=== PATIENT | male | born 1980 | race Caucasian/White ===

== ENCOUNTER 2018-01-29 10:09 | Emergency (ER) | payer MEDICAID, SELFPAY ==
[2018-01-29 10:12] VITALS: BP 157/94; PULSE 105; RESP 18; TEMP 36.7; O2SAT 97
--- NOTE | 2018-01-29 10:34 | W.ED.GENAD ---
Discharge Plan Disposition Patient Disposition: HOME Condition: Good Discharge Details Chief Complaint: Headache Clinical Impression: Head ache, Pedal edema Primary Care Provider: Brenda Hdz ED Provider: James Dockery [place] Meds and New Rx's Prescriptions: New ibuprofen 800 mg tablet 800 mg PO TID PRN (Reason: pain) Qty: 30 RF: 0 No Action sertraline [Zoloft] 100 MG tablet 100 mg PO .QO HS RF: 0 hydroxyzine HCl 50 MG tablet 50 mg PO HS RF: 0 divalproex [Depakote] 500 MG tablet,delayed release (DR/EC) 1,000 mg PO BID RF: 0 buspirone 10 MG tablet 20 mg PO BID RF: 0 tramadol [Ultram] 50 MG tablet 50 mg PO Q6H PRN Qty: 30 RF: 0 acetaminophen [Tylenol] 325 MG tablet 650 mg PO Q6H PRN Qty: 60 RF: 0 nicotine [Nicotrol] 10 MG cartridge 10 mg Inhalation Q2H PRN PRNQty: 1 RF: 0 docusate sodium 100 MG capsule 1 cap BID RF: 0 ibuprofen 800 MG tablet 800 mg PO TID PRN PRNRF: 0 acetaminophen [Mapap Extra Strength] 500 MG tablet 500 mg PO PRN PRNRF: 0 nicotine (polacrilex) [Nicorelief] 4 MG gum 4 mg CH RF: 0 calcium carbonate 500 MG tablet,chewable 500 mg PO PRN PRNRF: 0 multivit with [id number] [Men's Daily] 1 EACH capsule 1 tab PO DAILY RF: 0 lidocaine HCl 30 ML jelly 1 ml Topical Q4H PRN PRNQty: 1 RF: 2 albuterol sulfate [ProAir HFA] 8.5 GM HFA aerosol inhaler 2 puff Inhalation Q6H PRNRF: 0 Nicotine [Nicotine Patch] 1 EACH Patch.Dysq RF: 0 polyethylene glycol 3350 255 GM powder 17 gm PO DAILY AM PRNRF: 0 Discharge Instructions Instructions: General Headache (ED) Referrals: [facility] Emergency Dept. [Outside] - Return if symptoms worsen Discharge Data Discharge Date/Time-TO BE ENTERED AT DEPARTURE: 01/29/18 13:54 Medical Decision Making 37 y/o male with multiple medical issues blurred by his mental health. Will evaluate cp and swelling with ECG, chest x-ray, and labs. Will treat COTTON with morphine 2mg, Ibuprofen, and nausea with Zofran. Pt tells me he is feeling better. He does ask for Demerol but I respectfully declined. Advised to f/u with new pcp. I prescribed Ibuprofen for home use and at care bed. Apprised of normal lab work and abnormal chest x-ray. ECG Data Attestation: I personally reviewed and interpreted this ECG (s) as follows: Interpretation: reviewed with Dr. Lauro Prado. Sinus tachycardia with no acute ST changes. HPI General Date/Time Provider Initiated Documentation: 01/29/18 10:16. Limitations to Documentation: no limitations. Information obtained by: patient. History of Present Illness 37 year old M presents to the emergency department with the chief complaint of COTTON and feet swelling, HPI Narrative: 37 y/o male here with c/o COTTON and swelling of both feet. Juno has thick mental history with last inpatient stay reported a couple weeks ago for SI with attempt. He is a spotty historian and is inconsistency in his explanation and treatments he has received in the past. He is currently staying at the care bed. He tells me that his feet began to swelling while in the hospital after receiving imitrex. Everyday he notices his feet swell since that time. The facility does no share medical records so unable to verify patients history. He also c/o COTTON that is exacerbated by his mental illness. He tells me he needs to get his COTTON under control so he can deal with his mental well being. He denies any SI or HI today. He had CP two days ago and SOB today. Related Data Home Medications Medication Instructions Recorded Confirmed nicotine [Nicotrol] 10 mg INHALATION Q2H PRN PRN #1 ctr 01/22/13 12/29/17 docusate sodium 1 cap BID 05/25/14 12/29/17 ibuprofen 800 mg PO TID PRN PRN 01/10/15 12/29/17 buspirone 20 mg PO BID tab-cap NS 06/13/17 12/29/17 divalproex [Depakote] 1,000 mg PO BID tab-cap NS 06/13/17 12/29/17 hydroxyzine HCl 50 mg PO HS NS 06/13/17 12/29/17 sertraline [Zoloft] 100 mg PO .QO HS tab-cap NS 06/13/17 12/29/17 acetaminophen [Mapap Extra 500 mg PO PRN PRN 06/22/17 12/29/17 Strength] calcium carbonate 500 mg PO PRN PRN 06/22/17 12/29/17 lidocaine HCl 1 ml TOPICAL Q4H PRN PRN #1 tube 06/22/17 12/29/17 multivit with [id number] 1 tab PO DAILY 06/22/17 12/29/17 [Men's Daily] nicotine (polacrilex) [Nicorelief] 4 mg CH 06/22/17 12/29/17 Nicotine [Nicotine Patch] 09/07/17 12/29/17 albuterol sulfate [ProAir HFA] 2 puff INHALATION Q6H PRN 09/07/17 12/29/17 polyethylene glycol 3350 17 gm PO DAILY AM PRN 09/07/17 12/29/17 tramadol [Ultram] 50 mg PO Q6H PRN #30 tab-cap 10/05/17 12/29/17 acetaminophen [Tylenol] 650 mg PO Q6H PRN #60 tab-cap 10/10/17 12/29/17 ibuprofen 800 mg PO TID PRN #30 tab 01/29/18 Previous Rx's Medication Instructions Recorded nicotine [Nicotrol] 10 mg INHALATION Q2H PRN PRN #1 ctr 01/22/13 lidocaine HCl 1 ml TOPICAL Q4H PRN PRN #1 tube 06/22/17 tramadol [Ultram] 50 mg PO Q6H PRN #30 tab-cap 10/05/17 acetaminophen [Tylenol] 650 mg PO Q6H PRN #60 tab-cap 10/10/17 ibuprofen 800 mg PO TID PRN #30 tab 01/29/18 Allergies Allergy/AdvReac Type Severity Reaction Status Date / Time buprenorphine HCl Allergy Leg Unverified 09/07/17 06:32 [From Suboxone] swelling naloxone HCl [From Suboxone] Allergy Unverified 09/07/17 06:32 ketorolac [From Toradol] AdvReac Mild Headache Unverified 09/07/17 06:32 General Stated Complaint: Headache SEBASTIEN: 3 Review of Systems Eyes Reports system reviewed and no additional complaints, except as docu ENT Reports system reviewed and no additional complaints, except as docu Cardiovascular Reports chest pain, Reports pedal edema and Reports dyspnea Respiratory Reports dyspnea Gastrointestinal Denies abdominal pain, Denies diarrhea and Reports nausea Genitourinary Reports system reviewed and no additional complaints, except as [facility] Musculoskeletal Reports system reviewed and no additional complaints, except as [facility] Integumentary/Breasts Comments: redness to bilateral groin Neurologic Reports system reviewed and no additional complaints, except as docu Psychiatric Reports abnormal sleep pattern, Reports depression, Reports hopelessness, Reports irritability, Denies visual hallucinations, Denies hallucinations, Denies homicidal ideation and Denies suicidal ideation Hematologic/Lymphatic Reports system reviewed and no additional complaints, except as docu [facility] Social History household members: family housing: house lives independently: Yes Smoking/Tobacco Use Status: Current every day alcohol intake: never substance use type: does not use Exam Const General: cooperative, comfortable, no acute distress, well groomed and other (looks much older than 37) Nutritional Appearance: overweight Orientation: alert, awake and oriented x3 HENMT Head: atraumatic Ears: hearing grossly normal bilaterally, external ears normal and TM's normal bilaterally General nose exam: external nose normal and nares normal Face and sinus: face symmetric Mouth: oral mucosae normal Throat: posterior oropharynx normal Eyes General: appearance normal, both eyes and all related structures Alignment and Position: alignment normal Eyelids: eyelids normal Conjunctivae: conjunctivae normal Pupils: PERRL Neck Neck: normal visual inspection, full ROM, no lymphadenopathy and supple Resp Effort & Inspection: normal respiratory effort Auscultation: clear to auscultation bilaterally Cardio Jugular venous pressure: no JVD Rate: tachycardic Rhythm: regular rhythm Heart Sounds: no murmurs GI Inspection: normal to inspection Palpation: nontender Auscultation: normal bowel sounds Male General Exam: Yes normal external exam, No inguinal lymphadenopathy and Yes tenderness Penis: normal penis, not edematous and not erythematous Back/Spine/Pelvis Back: no CVA tenderness and No back tenderness Cervical Spine: cervical ROM normal Thoracic/Lumbar Spine: thoraco-lumbar ROM normal Skin General skin exam: no rashes or lesions noted Neuro General: alert, awake, oriented x3, gait normal and moves all extremities Cranial Nerves: PERRL Cognition: normal cognition Speech: speech normal Gait: normal gait Motor: tremor (slight hands and feet) and strength abnormal (bilateral lower extremties) Extrem General: full ROM and normal capillary refill Right upper extremity: full ROM and normal capillary refill Left upper extremity: full ROM and normal capillary refill Right lower extremity: full ROM, normal capillary refill, edema, ankle Details: no edema and foot Details: edema Left lower extremity: full ROM, normal capillary refill, edema, ankle Details: pitting edema and foot Details: edema Psych Appearance: grossly normal and well kempt Mental Status: mental status grossly normal Speech and Movement: slowed movement Mood: irritable mood Affect: irritable affect Attitude: cooperative Thought Process: circumstantial Thought Content: obsessions Insight: fair Judgment: fair Course Vital Signs Temperature 36.7 C 01/29/18 10:12 Pulse 105 H 01/29/18 10:12 Respiratory Rate 18 01/29/18 10:12 Blood Pressure 157/94 H 01/29/18 10:12 Pulse Oximetry 97 01/29/18 10:12 Temperature 36.7 C 01/29/18 10:12 Temperature Source Skin 01/29/18 10:12 Pulse 105 H 01/29/18 10:12 Respiratory Rate 18 01/29/18 10:12 Respiratory Effort 01/29/18 10:16 Blood Pressure 157/94 H 01/29/18 10:12 Blood Pressure Position Sitting 01/29/18 10:12 Pulse Oximetry 97 01/29/18 10:12 Oxygen Delivery Method Room Air 01/29/18 10:12 Oxygen Flow Rate 0 01/29/18 10:12 Pain Level 10 01/29/18 10:17
--- NOTE | 2018-01-29 10:44 | ED.GENADUL_ITS ---
Discharge Plan Disposition Patient Disposition: HOME Condition: Good Discharge Details Chief Complaint: Headache Clinical Impression: Head ache, Pedal edema Primary Care Provider: Brenda Hdz ED Provider: James Dockery [place] Meds and New Rx's Prescriptions: New ibuprofen 800 mg tablet 800 mg PO TID PRN (Reason: pain) Qty: 30 RF: 0 No Action sertraline [Zoloft] 100 MG tablet 100 mg PO .QO HS RF: 0 hydroxyzine HCl 50 MG tablet 50 mg PO HS RF: 0 divalproex [Depakote] 500 MG tablet,delayed release (DR/EC) 1,000 mg PO BID RF: 0 buspirone 10 MG tablet 20 mg PO BID RF: 0 tramadol [Ultram] 50 MG tablet 50 mg PO Q6H PRN Qty: 30 RF: 0 acetaminophen [Tylenol] 325 MG tablet 650 mg PO Q6H PRN Qty: 60 RF: 0 nicotine [Nicotrol] 10 MG cartridge 10 mg Inhalation Q2H PRN PRNQty: 1 RF: 0 docusate sodium 100 MG capsule 1 cap BID RF: 0 ibuprofen 800 MG tablet 800 mg PO TID PRN PRNRF: 0 acetaminophen [Mapap Extra Strength] 500 MG tablet 500 mg PO PRN PRNRF: 0 nicotine (polacrilex) [Nicorelief] 4 MG gum 4 mg CH RF: 0 calcium carbonate 500 MG tablet,chewable 500 mg PO PRN PRNRF: 0 multivit with [id number] [Men's Daily] 1 EACH capsule 1 tab PO DAILY RF: 0 lidocaine HCl 30 ML jelly 1 ml Topical Q4H PRN PRNQty: 1 RF: 2 albuterol sulfate [ProAir HFA] 8.5 GM HFA aerosol inhaler 2 puff Inhalation Q6H PRNRF: 0 Nicotine [Nicotine Patch] 1 EACH Patch.Dysq RF: 0 polyethylene glycol 3350 255 GM powder 17 gm PO DAILY AM PRNRF: 0 Discharge Instructions Instructions: General Headache (ED) Referrals: [facility] Emergency Dept. [Outside] - Return if symptoms worsen Discharge Data Discharge Date/Time-TO BE ENTERED AT DEPARTURE: 01/29/18 13:54 Medical Decision Making 37 y/o male with multiple medical issues blurred by his mental health. Will evaluate cp and swelling with ECG, chest x-ray, and labs. Will treat COTTON with morphine 2mg, Ibuprofen, and nausea with Zofran. Pt tells me he is feeling better. He does ask for Demerol but I respectfully declined. Advised to f/u with new pcp. I prescribed Ibuprofen for home use and at care bed. Apprised of normal lab work and abnormal chest x-ray. ECG Data Attestation: I personally reviewed and interpreted this ECG (s) as follows: Interpretation: reviewed with Dr. Lauro Prado. Sinus tachycardia with no acute ST changes. HPI General Date/Time Provider Initiated Documentation: 01/29/18 10:16 . Limitations to Documentation: no limitations . Information obtained by: patient . History of Present Illness 37 year old M presents to the emergency department with the chief complaint of COTTON and feet swelling, HPI Narrative: 37 y/o male here with c/o COTTON and swelling of both feet. Juno has thick mental history with last inpatient stay reported a couple weeks ago for SI with attempt. He is a spotty historian and is inconsistency in his explanation and treatments he has received in the past. He is currently staying at the care bed. He tells me that his feet began to swelling while in the hospital after receiving imitrex. Everyday he notices his feet swell since that time. The facility does no share medical records so unable to verify patients history. He also c/o COTTON that is exacerbated by his mental illness. He tells me he needs to get his COTTON under control so he can deal with his mental well being. He denies any SI or HI today. He had CP two days ago and SOB today. Related Data Home Medications Medication Instructions Recorded Confirmed nicotine [Nicotrol] 10 mg INHALATION Q2H PRN PRN #1 ctr 01/22/13 12/29/17 docusate sodium 1 cap BID 05/25/14 12/29/17 ibuprofen 800 mg PO TID PRN PRN 01/10/15 12/29/17 buspirone 20 mg PO BID tab-cap NS 06/13/17 12/29/17 divalproex [Depakote] 1,000 mg PO BID tab-cap NS 06/13/17 12/29/17 hydroxyzine HCl 50 mg PO HS NS 06/13/17 12/29/17 sertraline [Zoloft] 100 mg PO .QO HS tab-cap NS 06/13/17 12/29/17 acetaminophen [Mapap Extra 500 mg PO PRN PRN 06/22/17 12/29/17 Strength] calcium carbonate 500 mg PO PRN PRN 06/22/17 12/29/17 lidocaine HCl 1 ml TOPICAL Q4H PRN PRN #1 tube 06/22/17 12/29/17 multivit with [id number] 1 tab PO DAILY 06/22/17 12/29/17 [Men's Daily] nicotine (polacrilex) [Nicorelief] 4 mg CH 06/22/17 12/29/17 Nicotine [Nicotine Patch] 09/07/17 12/29/17 albuterol sulfate [ProAir HFA] 2 puff INHALATION Q6H PRN 09/07/17 12/29/17 polyethylene glycol 3350 17 gm PO DAILY AM PRN 09/07/17 12/29/17 tramadol [Ultram] 50 mg PO Q6H PRN #30 tab-cap 10/05/17 12/29/17 acetaminophen [Tylenol] 650 mg PO Q6H PRN #60 tab-cap 10/10/17 12/29/17 ibuprofen 800 mg PO TID PRN #30 tab 01/29/18 Previous Rx's Medication Instructions Recorded nicotine [Nicotrol] 10 mg INHALATION Q2H PRN PRN #1 ctr 01/22/13 lidocaine HCl 1 ml TOPICAL Q4H PRN PRN #1 tube 06/22/17 tramadol [Ultram] 50 mg PO Q6H PRN #30 tab-cap 10/05/17 acetaminophen [Tylenol] 650 mg PO Q6H PRN #60 tab-cap 10/10/17 ibuprofen 800 mg PO TID PRN #30 tab 01/29/18 Allergies Allergy/AdvReac Type Severity Reaction Status Date / Time buprenorphine HCl Allergy Leg Unverified 09/07/17 06:32 [From Suboxone] swelling naloxone HCl [From Suboxone] Allergy Unverified 09/07/17 06:32 ketorolac [From Toradol] AdvReac Mild Headache Unverified 09/07/17 06:32 General Stated Complaint: Headache SEBASTIEN: 3 Review of Systems Eyes Reports system reviewed and no additional complaints, except as docu ENT Reports system reviewed and no additional complaints, except as docu Cardiovascular Reports chest pain, Reports pedal edema and Reports dyspnea Respiratory Reports dyspnea Gastrointestinal Denies abdominal pain, Denies diarrhea and Reports nausea Genitourinary Reports system reviewed and no additional complaints, except as [facility] Musculoskeletal Reports system reviewed and no additional complaints, except as [facility] Integumentary/Breasts Comments: redness to bilateral groin Neurologic Reports system reviewed and no additional complaints, except as docu Psychiatric Reports abnormal sleep pattern, Reports depression, Reports hopelessness, Reports irritability, Denies visual hallucinations, Denies hallucinations, Denies homicidal ideation and Denies suicidal ideation Hematologic/Lymphatic Reports system reviewed and no additional complaints, except as docu [facility] Social History household members: family housing: house lives independently: Yes Smoking/Tobacco Use Status: Current every day alcohol intake: never substance use type: does not use Exam Const General: cooperative, comfortable, no acute distress, well groomed and other (looks much older than 37) Nutritional Appearance: overweight Orientation: alert, awake and oriented x3 HENMT Head: atraumatic Ears: hearing grossly normal bilaterally, external ears normal and TM's normal bilaterally General nose exam: external nose normal and nares normal Face and sinus: face symmetric Mouth: oral mucosae normal Throat: posterior oropharynx normal Eyes General: appearance normal, both eyes and all related structures Alignment and Position: alignment normal Eyelids: eyelids normal Conjunctivae: conjunctivae normal Pupils: PERRL Neck Neck: normal visual inspection, full ROM, no lymphadenopathy and supple Resp Effort & Inspection: normal respiratory effort Auscultation: clear to auscultation bilaterally Cardio Jugular venous pressure: no JVD Rate: tachycardic Rhythm: regular rhythm Heart Sounds: no murmurs GI Inspection: normal to inspection Palpation: nontender Auscultation: normal bowel sounds Male General Exam: Yes normal external exam, No inguinal lymphadenopathy and Yes tenderness Penis: normal penis, not edematous and not erythematous Back/Spine/Pelvis Back: no CVA tenderness and No back tenderness Cervical Spine: cervical ROM normal Thoracic/Lumbar Spine: thoraco-lumbar ROM normal Skin General skin exam: no rashes or lesions noted Neuro General: alert, awake, oriented x3, gait normal and moves all extremities Cranial Nerves: PERRL Cognition: normal cognition Speech: speech normal Gait: normal gait Motor: tremor (slight hands and feet) and strength abnormal (bilateral lower extremties) Extrem General: full ROM and normal capillary refill Right upper extremity: full ROM and normal capillary refill Left upper extremity: full ROM and normal capillary refill Right lower extremity: full ROM, normal capillary refill, edema, ankle Details: no edema and foot Details: edema Left lower extremity: full ROM, normal capillary refill, edema, ankle Details: pitting edema and foot Details: edema Psych Appearance: grossly normal and well kempt Mental Status: mental status grossly normal Speech and Movement: slowed movement Mood: irritable mood Affect: irritable affect Attitude: cooperative Thought Process: circumstantial Thought Content: obsessions Insight: fair Judgment: fair Course Vital Signs Temperature 36.7 C 01/29/18 10:12 Pulse 105 H 01/29/18 10:12 Respiratory Rate 18 01/29/18 10:12 Blood Pressure 157/94 H 01/29/18 10:12 Pulse Oximetry 97 01/29/18 10:12 Temperature 36.7 C 01/29/18 10:12 Temperature Source Skin 01/29/18 10:12 Pulse 105 H 01/29/18 10:12 Respiratory Rate 18 01/29/18 10:12 Respiratory Effort 01/29/18 10:16 Blood Pressure 157/94 H 01/29/18 10:12 Blood Pressure Position Sitting 01/29/18 10:12 Pulse Oximetry 97 01/29/18 10:12 Oxygen Delivery Method Room Air 01/29/18 10:12 Oxygen Flow Rate 0 01/29/18 10:12 Pain Level 10 01/29/18 10:17
[2018-01-29 10:57] LABS: Absolute Basophil Count 0.02 k/cumm (0.0-0.2); Absolute Eosinophil Count 0.14 k/cumm (0.0-0.7); Absolute Lymphocyte Count 1.64 k/cumm (1.2-3.4); Absolute Monocyte Count 0.56 k/cumm (0.11-0.7); Absolute Neutrophil Count 3.63 k/cumm (1.2-6.7); Basophils % 0.3; Eosinophils % 2.3; HCT 36.9 % (40.0-50.0); HGB 12.6 g/dL (13.5-17.5); Immature Grans % 1.6; Lymphocytes % 26.9; Mean Corp. HGB Concentration 34.1 g/dL (32.0-36.0); Mean Corpuscular Hemoglobin 31.3 pg (27.0-33.0); Mean Corpuscular Volume 91.8 fL (80-95); Mean Platelet Volume 9.1 fL (8.0-11.0); Monocytes % 9.2; Neutrophils % 59.7; Platelet Count 264 x1000/uL (130-400); RBC 4.02 m/cumm (4.50-6.00); RBC Distribution Width 13.5 % (11.8-14.1); White Blood Cell Count 6.09 k/cumm (4.4-10.8)
[2018-01-29] MEDS: Ibuprofen 600 MG TAB PO (11:10)
[2018-01-29] MEDS: Ondansetron O.D.T. 4 MG TABEF PO (11:10)
[2018-01-29] MEDS: MORPHine 10 MG/ML VIAL 2 MG IVP (11:11)
[2018-01-29] MEDS: Normal Saline 1,000 ML 1000 ML IV (11:11)
[2018-01-29 11:20] LABS: ALT 34 U/L (12-78); AST 21 U/L (15-37); Albumin 3.5 g/dL (3.4-5.0); Alkaline Phosphatase 51 U/L (46-116); Anion Gap 10.3 mmol/L (3-11); BUN 11 mg/dL (7-18); Bilirubin, Total 0.2 mg/dL (0.2-1.0); CO2 27.7 mmol/L (21.0-32.0); CREATININE 0.77 mg/dL (0.70-1.30); Calcium 9.3 mg/dL (8.5-10.1); Chloride 102 mmol/L (98-107); Glucose 91 mg/dL (70-100); Sodium 140 mmol/L (136-145); Total Protein 6.9 g/dL (6.4-8.2)
[2018-01-29 11:36] LABS: ESR 17 MM/HR (0-15)
[2018-01-29 11:42] LABS: NT-proBNP 77 pg/mL
--- NOTE | 2018-01-29 12:15 | DI.RAD_ITS ---
SYMPTOM/DIAGNOSIS: CHEST PAIN, BILAT FEET SWELLING PA AND LATERAL CHEST: There is patient motion artifact on the lateral view. Heart size and pulmonary vasculature are within normal limits. No focal consolidating infiltrates or effusions are seen. There is a small, 7 mm. opacity projected over the left lung base. This may represent a superimposition of structures. The lateral view is grossly unremarkable in this region. The possibility of a pulmonary nodule cannot be excluded. No effusions or pneumothoraces are identified. The bones appear intact. IMPRESSION: 1. No acute pulmonary process. 2. 7 mm. density projected over the left lower lung field on the frontal view. This may represent artifact related to summation of shadows. A small pulmonary nodule cannot be excluded. A follow up chest xray should be considered in this patient for re-evaluation.
[2018-01-29 13:53] VITALS: BP 116/71; PULSE 80; RESP 16; TEMP 36.5; O2SAT 97
== END 2018-01-29 13:54 | disposition home or self-care (01) ==
PROVIDERS: Emergency Provider Nurse Practitioner Family; PCP Nurse Practitioner Family
DX: R51 Headache (principal); R60.9 Edema, unspecified
CPT/HCPCS: 36415; 80053; 85652; 93005; 96374; 99285; 71046; 83880; 85025; 93010; J2270

== ENCOUNTER 2018-01-30 22:30 | Emergency (ER) | payer MEDICAID, SELFPAY ==
[2018-01-30 22:36] VITALS: BP 131/81; PULSE 85; RESP 18; TEMP 36.7; O2SAT 98
[2018-01-30 23:01] LABS: Abs Immature Grans 0.09 k/cumm (0.0-0.09); Absolute Basophil Count 0.02 k/cumm (0.0-0.2); Absolute Eosinophil Count 0.13 k/cumm (0.0-0.7); Absolute Monocyte Count 0.45 k/cumm (0.11-0.7); Absolute Neutrophil Count 3.44 k/cumm (1.2-6.7); Basophils % 0.3; Eosinophils % 2.1; HCT 38.6 % (40.0-50.0); HGB 13.1 g/dL (13.5-17.5); Immature Grans % 1.5; Lymphocytes % 32.6; Mean Corp. HGB Concentration 33.9 g/dL (32.0-36.0); Mean Corpuscular Hemoglobin 30.8 pg (27.0-33.0); Mean Corpuscular Volume 90.8 fL (80-95); Mean Platelet Volume 8.8 fL (8.0-11.0); Monocytes % 7.3; Neutrophils % 56.2; Platelet Count 267 x1000/uL (130-400); RBC 4.25 m/cumm (4.50-6.00); RBC Distribution Width 13.4 % (11.8-14.1); White Blood Cell Count 6.13 k/cumm (4.4-10.8)
[2018-01-30 23:28] LABS: ALT 35 U/L (12-78); AST 18 U/L (15-37); Albumin 3.9 g/dL (3.4-5.0); Alkaline Phosphatase 56 U/L (46-116); Anion Gap 11.9 mmol/L (3-11); BUN 15 mg/dL (7-18); Bilirubin, Total 0.2 mg/dL (0.2-1.0); CO2 26.1 mmol/L (21.0-32.0); CREATININE 0.85 mg/dL (0.70-1.30); Calcium 9.2 mg/dL (8.5-10.1); Chloride 101 mmol/L (98-107); Glucose 103 mg/dL (70-100); Potassium 4.1 mmol/L (3.5-5.1); Sodium 139 mmol/L (136-145); TSH 2.34 uIU/mL (0.358-3.74); Total Protein 7.3 g/dL (6.4-8.2)
[2018-01-30 23:31] LABS: *AMPHETAMINES SCREEN URINE Negative (Negative); *BARBITURATES SCREEN URINE POSITIVE (Negative); *BENZODIAZEPINES SCREEN URINE Negative (Negative); Cannabinoids THC Negative (Negative); Cocaine Screen,Urine Negative (Negative); METHADONE URINE SCREEN Negative (Negative); OPIATES URINE SCREEN Negative (Negative)
[2018-01-30 23:33] LABS: Tricyclic Antidepressants Negative (Negative)
[2018-01-30 23:33] LABS: ETHANOL BLOOD < 3.0 mg/dL (<3); Salicylate < 2.8 mg/dL (2.8-20.0)
[2018-01-30 23:38] LABS: Acetaminophen < 2 ug/mL (10-30)
[2018-01-31] MEDS: Ibuprofen 800 MG TAB PO ×2 (00:05→07:22)
[2018-01-31] MEDS: Acetaminophen 500 MG TAB 1000 MG PO ×2 (00:05→07:23)
--- NOTE | 2018-01-31 00:25 | PDOC.MHCN ---
Mental Health Crisis Note Presenting Issue How did you arrive at the ED and why did you come: Patient comes by ambulance due to suicidal and homicidal ideation, intent and plan. Precipitating Factors Patient reports worsening suicidal and homicidal thoughts and says he spent the day thinking about ways of killing himself. He wants to pour gasoline on his parents' home and set it on fire, in addition to stabbing his psychiatrist in the throat because he is angry with them for ruining his life. Patient was recently discharged to the Care Bed from [facility] where he was admitted after a suicide attempt. He reports that the psychiatric hospitalization was not helpful to him as he continues to have suicidal and homicidal thoughts. Disposition BEHAVIOR: Calm and cooperative. EYE CONTACT: Intermittent. MOOD: Depressed. AFFECT: Subdued. APPETITE: Good. SLEEP(trouble falling/staying asleep: Reports being unable to sleep in several days. Plan After consultation with Dr. Clayton, the plan is for patient to remain at [facility] the [facility] as there are no available psychiatric beds this evening. Patient will be reassessed by [facility] program in the morning and the search for a placement will resume at that time, if deemed appropriate by [facility].
--- NOTE | 2018-01-31 00:33 | W.ED.GENAD ---
Medical Decision Making <Glynn Clayton DO - Last Filed: 02/17/18 11:48> This is a 37-year-old male who presents for evaluation of suicidal and homicidal ideations. He has multiple plans to harm himself, and he has done so in the past as well. He demonstrates red flags both that his clinical history, and is in his current complaint and plans. He also has homicidal ideations for his parents, including writing them on fire with gasoline. Because of the patient's history, risk factors, and complaints I do feel that he is at risk for harming self and others. Patient is coming in willingly, and is requesting treatment and help at this time. There is no indication for an EE at this time. We have created a safety plan, continuous observation, and a huddle. Currently there are no psychiatric beds available, and we do not have the appropriate staffing for admission to the floor for the patient. We will continue to keep him down here for the time being. Patient's laboratory workup is otherwise benign and he is medically cleared. 7:41 AM There continues to be no bed placement options in that state at this time, additionally we do not have the appropriate sitter option for admission to the floor at this time. Patient will continue to be observed in the emergency department pending reevaluation by mental health. Safety plan and continuous observation are still in place. Case will be signed out to my colleague Dr. Pate. HPI <Glynn Clayton DO - Last Filed: 02/17/18 11:48> General Date/Time Provider Initiated Documentation: 01/30/18 22:32. HPI Narrative: This is a 37-year-old male with a past medical history of suicidal attempts, seizure disorder, GERD, borderline personality disorder, schizophrenia, PTSD, who presents today for evaluation of suicidal and homicidal ideations. Patient states that he was recently discharged from a psychiatric facility for attempting to commit suicide within the past few weeks. He states that he has been living at the local crisis bed/chair bed. He states that he has been hearing [place] [employer] and this reminds him of his family, and is driving me nuts.He states that he wants to both kill himself and kill others. In regards to himself he has multiple plans of taking medications, stabbing himself in the chest with a sharp knife, or taking Drano or other toxic substances. He has been looking up the most painless ways to online, but he states that he has multiple different ideas. In regards to homicidal ideations he states that he has been thinking about killing his parents, by dousing their house or their bodies in gasoline and writing them on fire. He denies any auditory or visual hallucinations. He denies taking any medications, illicit drugs, or other substances recently to hurt himself. No other modifying factors at this time. Related Data Home Medications Medication Instructions Recorded Confirmed buspirone 20 mg PO BID tab-cap NS 06/13/17 02/15/18 divalproex [Depakote] 1,000 mg PO BID tab-cap NS 06/13/17 02/15/18 hydroxyzine HCl 50 mg PO HS NS 06/13/17 02/15/18 sertraline [Zoloft] 100 mg PO .QO HS tab-cap NS 06/13/17 02/15/18 acetaminophen [Mapap Extra 500 mg PO PRN PRN 06/22/17 02/15/18 Strength] ibuprofen 800 mg PO TID PRN #30 tab 01/29/18 02/15/18 gabapentin 100 mg PO TID 01/31/18 02/15/18 Previous Rx's Medication Instructions Recorded ibuprofen 800 mg PO TID PRN #30 tab 01/29/18 Allergies Allergy/AdvReac Type Severity Reaction Status Date / Time buprenorphine HCl Allergy Leg Unverified 02/15/18 00:21 [From Suboxone] swelling naloxone HCl [From Suboxone] Allergy Unverified 02/15/18 00:21 ketorolac [From Toradol] AdvReac Mild Headache Unverified 02/15/18 00:21 General Stated Complaint: PsychEval SEBASTIEN: 2 Review of Systems <Glynn Clayton DO - Last Filed: 02/17/18 11:48> Review of Systems All systems reviewed & are unremarkable except as noted in HPI and below PFSH <Glynn Clayton DO - Last Filed: 02/17/18 11:48> Social History household members: family housing: house lives independently: Yes Smoking/Tobacco Use Status: Current every day alcohol intake: never substance use type: does not use Exam <Glynn BrunsoncerDO - Last Filed: 02/17/18 11:48> Narrative Exam Narrative: 1.Const: Well-nourished, Well-developed, appearing stated age 2.Eyes: PERRL, no conjunctival injection, and symmetrical lids. 3.ENT: Atraumatic external nose and ears. Moist MM. Neck: Symmetric, trachea midline, No thyromegaly. 4.CVS: +S1/S2, No murmurs or gallops. Peripheral pulses 2+ and equal in all extremities. Brisk capillary refill in all extremities. 5.RESP: Unlabored respiratory effort. Clear to auscultation bilaterally. No wheezes rales or rhonchi 6.GI: Soft, Nontender/Nondistended, No hepatosplenomegaly. No guarding or rebound. 7.MSK: Normocephalic/Atraumatic, Extremities w/o deformity or ttp No cyanosis or clubbing, Normal movement of all extremities 8.Skin: Warm, Dry. No rashes or lesions. 9.Neuro: cop examiner II-XII grossly intact. Sensation grossly intact, no focal neurologic deficits. 10.Psych: (AAO) x3. Patient has a very flat mood and affect Course <Glynn Stubbs ForrestDO - Last Filed: 02/17/18 11:48> Vital Signs Temperature 36.7 C 01/30/18 22:36 Pulse 85 01/30/18 22:36 Respiratory Rate 18 01/30/18 22:36 Blood Pressure 131/81 01/30/18 22:36 Pulse Oximetry 98 01/30/18 22:36 Temperature 36.7 C 01/30/18 22:36 Temperature Source Skin 01/30/18 22:36 Pulse 85 01/30/18 22:36 Respiratory Rate 18 01/30/18 22:36 Respiratory Effort Non-Labored 01/30/18 22:46 Blood Pressure 131/81 01/30/18 22:36 Blood Pressure Position Sitting 01/30/18 22:36 Pulse Oximetry 98 01/30/18 22:36 Oxygen Delivery Method Room Air 01/30/18 22:36 Oxygen Flow Rate 0 01/30/18 22:36 Lab/Test Results Lab/Test Results: Laboratory Tests Range/Units 12/18/18 12/18/18 12/18/18 22:55 22:55 22:55 WBC (4.4-10.8) k/cumm 6.13 RBC (4.50-6.00) m/cumm 4.25 L Hgb (13.5-17.5) g/dL 13.1 L Hct (40.0-50.0) % 38.6 L MCV (80-95) fL 90.8 MCH (27.0-33.0) pg 30.8 MCHC (32.0-36.0) g/dL 33.9 RDW (11.8-14.1) % 13.4 Plt Count (130-400) x1000/uL 267 MPV (8.0-11.0) fL 8.8 Immature Gran % 1.5 Neutrophils % 56.2 Lymphocytes % 32.6 Monocytes % 7.3 Eosinophils % 2.1 Basophils % 0.3 Absolute Neutrophils (1.2-6.7) k/cumm 3.44 Absolute Lymphocytes (1.2-3.4) k/cumm 2.00 Absolute Monocytes (0.11-0.7) k/cumm 0.45 Absolute Eosinophils (0.0-0.7) k/cumm 0.13 Absolute Basophils (0.0-0.2) k/cumm 0.02 Sodium (136-145) mmol/L 139 Potassium (3.5-5.1) mmol/L 4.1 Chloride (98-107) mmol/L 101 Carbon Dioxide (21.0-32.0) mmol/L 26.1 Anion Gap (3-11) mmol/L 11.9 H BUN (7-18) mg/dL 15 Creatinine (0.70-1.30) mg/dL 0.85 Estimated GFR/1.73 m2 (mL/min/1.73m2) >= 60.00 Glucose (70-100) mg/dL 103 H Calcium (8.5-10.1) mg/dL 9.2 Total Bilirubin (0.2-1.0) mg/dL 0.2 AST (15-37) U/L 18 ALT (12-78) U/L 35 Alkaline Phosphatase (46-116) U/L 56 Total Protein (6.4-8.2) g/dL 7.3 Albumin (3.4-5.0) g/dL 3.9 TSH (0.358-3.74) uIU/mL 2.34 Salicylates (2.8-20.0) mg/dL < 2.8 L Urine Opiates Screen (Negative) Urine Methadone Screen (Negative) Acetaminophen (10-30) ug/mL < 2 L Ur Barbiturates Screen (Negative) Ur Tricyclics Screen (Negative) Ur Amphetamines Screen (Negative) U Benzodiazepines Scrn (Negative) Urine Cocaine Screen (Negative) Ur THC Screen (Negative) Ethyl Alcohol (<3) mg/dL < 3.0 Range/Units 01/30/18 23:04 WBC (4.4-10.8) k/cumm RBC (4.50-6.00) m/cumm Hgb (13.5-17.5) g/dL Hct (40.0-50.0) % MCV (80-95) fL MCH (27.0-33.0) pg MCHC (32.0-36.0) g/dL RDW (11.8-14.1) % Plt Count (130-400) x1000/uL MPV (8.0-11.0) fL Immature Gran % Neutrophils % Lymphocytes % Monocytes % Eosinophils % Basophils % Absolute Neutrophils (1.2-6.7) k/cumm Absolute Lymphocytes (1.2-3.4) k/cumm Absolute Monocytes (0.11-0.7) k/cumm Absolute Eosinophils (0.0-0.7) k/cumm Absolute Basophils (0.0-0.2) k/cumm Sodium (136-145) mmol/L Potassium (3.5-5.1) mmol/L Chloride (98-107) mmol/L Carbon Dioxide (21.0-32.0) mmol/L Anion Gap (3-11) mmol/L BUN (7-18) mg/dL Creatinine (0.70-1.30) mg/dL Estimated GFR/1.73 m2 (mL/min/1.73m2) Glucose (70-100) mg/dL Calcium (8.5-10.1) mg/dL Total Bilirubin (0.2-1.0) mg/dL AST (15-37) U/L ALT (12-78) U/L Alkaline Phosphatase (46-116) U/L Total Protein (6.4-8.2) g/dL Albumin (3.4-5.0) g/dL TSH (0.358-3.74) uIU/mL Salicylates (2.8-20.0) mg/dL Urine Opiates Screen (Negative) Negative Urine Methadone Screen (Negative) Negative Acetaminophen (10-30) ug/mL Ur Barbiturates Screen (Negative) Positive Ur Tricyclics Screen (Negative) Negative Ur Amphetamines Screen (Negative) Negative U Benzodiazepines Scrn (Negative) Negative Urine Cocaine Screen (Negative) Negative Ur THC Screen (Negative) Negative Ethyl Alcohol (<3) mg/dL Sign Out <Glynn Clayton DO - Last Filed: 02/17/18 11:48> Sign Out Data: Sign Out Comment: pending bed placement Last updated by Glynn Clayton DO at 01/31/18 07:48 Post-Handoff Eval: pt has remained stable, has vague SI and per mental health provider who knows him well states his complaints are chronic and unchanged and doesn't meet criteria for inpatient psychiatric placement at this time and feel he is stable for d/c back to care bed which at this current time I feel is appropriate.
--- NOTE | 2018-01-31 00:35 | PDOC.MHCN_ITS ---
Mental Health Crisis Note Presenting Issue How did you arrive at the ED and why did you come: Patient comes by ambulance due to suicidal and homicidal ideation, intent and plan. Precipitating Factors Patient reports worsening suicidal and homicidal thoughts and says he spent the day thinking about ways of killing himself. He wants to pour gasoline on his parents' home and set it on fire, in addition to stabbing his psychiatrist in the throat because he is angry with them for ruining his life. Patient was recently discharged to the Care Bed from [facility] where he was admitted after a suicide attempt. He reports that the psychiatric hospitalization was not helpful to him as he continues to have suicidal and homicidal thoughts. Disposition BEHAVIOR: Calm and cooperative. EYE CONTACT: Intermittent. MOOD: Depressed. AFFECT: Subdued. APPETITE: Good. SLEEP(trouble falling/staying asleep: Reports being unable to sleep in several days. Plan After consultation with Dr. Clayton, the plan is for patient to remain at [facility] for the night as there are no available psychiatric beds this evening. Patient will be reassessed by [facility] PUBLIC WORKS INSPECTOR program in the morning and the search for a placement will resume at that time, if deemed appropriate by PUBLIC WORKS INSPECTOR.
--- NOTE | 2018-01-31 00:44 | PDOC.ERCMPRO ---
Care Management Progress Note S/O: Juno is expressing SI and HI with a plan. He does not feel his recent hospitalization at [facility] was helpful but is willing to accept further inpatient psychiatric care. He cannot return to the care bed [facility] and will remain in the hospital until thre is an open bed at a psychiatric facility. Huddle at 12:10AM Paty Hernández and EMELINA [facility]connor ED; [facility] and this CM. Safety Plan - Voluntary Status seeking Inpatient Psychiatric admission 1. Suicide precautions. Paper scrubs. 2. Will remain in room under direct supervision of one-on-one staff at all times provided by GERALDO (CPSO), PHOTOGRAPHIC SPECIALIST servicenow administrator. 3. May have paper cups, plates, finger foods as well as a metal spoon with which to eat meals. [facility] staff will be responsible for accounting of utensils after meals. 4. Follow [facility] Management of the Admitted Behavioral Health Patient policy.. 5. Comfort bath system only. 6. No personal belongings. 7. No visitors. 8. No phone. 9. Staff to escort to the bathroom. 10. If Juno wishes to leave [facility] developmental services worker must be contacted and re-evaluate his condition prior to discharge from the hospital. Patient is currently voluntarily at [facility]. MH assessment completed by [facility] Frontline Seo Expert. [facility] Please contact the Intake Assessor Label Operator ([phone]) and [facility] developmental services worker ([phone])for any needed changes in the Safety Plan.
--- NOTE | 2018-01-31 01:21 | CMPROGNOTE_ITS ---
Care Management Progress Note S/O: Juno is expressing SI and HI with a plan. He does not feel his recent hospitalization at [place] was helpful but is willing to accept further inpatient psychiatric care. He [facility] the care bed [facility] and will remain in the hospital until thre is an open bed at a psychiatric facility. Huddle at 12:10AM Paty Hernández and [facility] ED; [facility] and this CM. Safety Plan - Voluntary Status seeking Inpatient Psychiatric admission 1. Suicide precautions. Paper scrubs. 2. Will remain in room under direct supervision of one-on-one staff at all times provided by GERALDO (CPSO), DIRECTOR PRINT store sales manager. 3. May have paper cups, plates, finger foods as well as a metal spoon with which to eat meals. [facility] staff will be responsible for accounting of utensils after meals. 4. Follow [facility] Management of the Admitted Behavioral Health Patient policy.. 5. Comfort bath system only. 6. No personal belongings. 7. No visitors. 8. No phone. 9. Staff to escort to the bathroom. 10. If Juno wishes to leave [facility] hollow handle bench worker must be contacted and re- evaluate his condition prior to discharge from the hospital. Patient is currently voluntarily at [facility]. MH assessment completed by [facility] Frontline Shear Scrapman. [facility]. Please contact the Lidar Technician Veterans' Coordinator ([phone]) and [facility] hollow handle bench worker ([phone])for any needed changes in the Safety Plan.
--- NOTE | 2018-01-31 07:07 | NUR.NOTE ---
Nursing Note:Report from overnight cashier RN Paty. Pt awake requesting coffee. 1:1 sitter states he slept well through the night. behavior is calm at this time. Awaiting mental health consult. no acute distress, will continue to monitor.
[2018-01-31] MEDS: Gabapentin 100 MG CAP PO (07:43)
[2018-01-31] MEDS: busPIRone 5 MG TAB 20 MG PO (07:43)
--- NOTE | 2018-01-31 07:46 | NUR.NOTE ---
Nursing Note: Pt inquiring about plan of care. Pt requesting coffee, ice packs, and morning meds. no further needs, will continue to monitor.
--- NOTE | 2018-01-31 09:41 | NUR.NOTE ---
Nursing Note:Pt given breakfast tray, 1:1 mamadou chaves for safety. Spoke with Cheyanne from mental health who will be down to see patient shortly. no acute changes noted. will continue to monitor.
--- NOTE | 2018-01-31 10:09 | NUR.NOTE ---
Nursing Note: No new changes
--- NOTE | 2018-01-31 12:28 | PDOC.MHCN ---
Date of service: 01/31/18 Time of Service: 12:29 Mental Health Crisis Note Presenting Issue How did you arrive at the ED and why did you come: Client was transported via ambulance to [facility] from [facility] Care bed as he reports having suicidal ideation and homicidal ideation. Precipitating Factors Client reports having suicidal ideation and homicidal ideation (wanting to burn down his parents home and kill Dr. Sandoval).Client stepped down from [facility] to [facility] Care Bed for stabilization and requested to be transported to [facility] as he was experiencing suicidal ideation and homicidal ideation. Disposition BEHAVIOR: Client was resistant to making a safety plan to return to the Care bed and discontinued the screening process. EYE CONTACT: Slanted eyes during half of the screening process then wide open eyes during the other half of the screening process. MOOD: Frustrated and angry with the mental health system. AFFECT: Congruent to mood. APPETITE: Client ate a sandwich and bag of chips during the screening process. Plan There are no available hospital beds in the [facility] and the client reports not feeling safe to return to [facility] Care bed therefore he will remain at [facility] until the client feels safe to return to the Care bed or a hospital bed become available in a psychiatric facility.
--- NOTE | 2018-01-31 12:48 | PDOC.MHCN_ITS ---
Date of service: 01/31/18 Time of Service: 12:29 Mental Health Crisis Note Presenting Issue How did you arrive at the ED and why did you come: Client was transported via ambulance to [facility] from [facility] Care bed as he reports having suicidal ideation and homicidal ideation. Precipitating Factors Client reports having suicidal ideation and homicidal ideation (wanting to burn down his parents home and kill Dr. Sandoval).Client stepped down from [facility] to [facility] Care Bed for stabilization and requested to be transported to [facility] as he was experiencing suicidal ideation and homicidal ideation. Disposition BEHAVIOR: Client was resistant to making a safety plan to return to the Care bed and discontinued the screening process. EYE CONTACT: Slanted eyes during half of the screening process then wide open eyes during the other half of the screening process. MOOD: Frustrated and angry with the mental health system. AFFECT: Congruent to mood. APPETITE: Client ate a sandwich and bag of chips during the screening process. Plan There are no available hospital beds in the [facility] and the client reports not feeling safe to return to [facility] Care bed therefore he will remain at [facility] until the client feels safe to return to the Care bed or a hospital bed become available in a psychiatric facility.
--- NOTE | 2018-01-31 16:04 | PDOC.ERCMPRO ---
Care Management Progress Note Huddle Participants; Angelica Still: [employer] [facility], [place]; ED , Shanna; RN, Xuan; ELSI Angelica Still reports Juno no longer meets criteria for Inpatient Status and likely did not on admission. She states he is well known patient, a member of [employer] and has historically received all of his services through [facility] [place] office as he is a resident of [place]. Reportedly, Juno has a history of presenting to the ER at [facility], so much so that a behavioral plan is in place when he arrives-he is not assessed, is placed in a room outside of the ED until he leaves; per traveling RN Kylah who reportedly works at [facility] too. CM agreed to follow up with Tommie and [facility] to gather more information. Angelica Guevara reports Juno was placed at the Crisis Bed in [facility] as a step down from [place] due to planning central to transferring housing and services to [facility] and [facility] in [facility] as Juno has burned his bridges in [facility]. CM will follow up on this information as well as work with interdisciplinary team on Behavioral Plan for when Juno presents to ED. Angelica Guevara reports Juno does not meet criteria for inpatient, will return to care bed and be transported by [employer] staff.
--- NOTE | 2018-01-31 16:22 | CMPROGNOTE_ITS ---
Care Management Progress Note Huddle Participants; Angeilca Still: PROGRAM[employer] ANALY[employer] [facility], [place]; ED , Shanna; RN, Xuan; ELSI Angelica Still reports Juno no longer meets criteria for Inpatient Status and likely did not on admission. She states he is well known patient, a member of [employer] and has historically received all of his services through [facility] [place] office as he is a resident of [place]. Reportedly, Juno has a history of presenting to the ER at [facility], so much so that a behavioral plan is in place when he arrives-he is not assessed, is placed in a room outside of the ED until he leaves; per traveling RN Kylah who reportedly works at [facility] too. CM agreed to follow up with Tommie and [facility] to gather more information. Angelica Guevara reports Juno was placed at the Crisis Bed in [facility] as a step down from [place] due to planning central to transferring housing and services to [facility] and [facility] in [facility] as Juno has burned his bridges in [facility]. CM will follow up on this information as well as work with interdisciplinary team on Behavioral Plan for when Juno presents to ED. Angelica Guevara reports Juno does not meet criteria for inpatient, will return to care bed and be transported by [employer] staff.
--- NOTE | 2018-02-07 14:38 | PDOC.ERCMPRO ---
- If Service Date Differs Date of service: 02/07/18 Time of Service: 14:38 Care Management Progress Note CM spoke with Angelica, ER [place], whom states that Juno requires a F/U CXR. CM contacted Brenda Hdz's office in [place] and spoke with Muriel, Triage Line,. ELSI faxed CXR report and requested a f/u cxr be ordered. Muriel will alert provider.
== END 2018-01-31 13:42 | disposition other institution (70) ==
PROVIDERS: Student in an Organized Health Care Education/Training Program; Emergency Provider Emergency Medicine; PCP Nurse Practitioner Family
DX: F60.3 Borderline personality disorder (principal); R45.851 Suicidal ideations; R45.850 Homicidal ideations
CPT/HCPCS: 80053; 80307; 99285; 80320; 80329; 84443; 85025; 99284

== ENCOUNTER 2018-02-15 00:05 | Emergency (ER) | payer MEDICAID, SELFPAY ==
[2018-02-15 00:09] VITALS: BP 129/87; PULSE 83; RESP 16; TEMP 36.4; O2SAT 97
[2018-02-15 00:57] LABS: Abs Immature Grans 0.08 k/cumm (0.0-0.09); Absolute Basophil Count 0.03 k/cumm (0.0-0.2); Absolute Eosinophil Count 0.14 k/cumm (0.0-0.7); Absolute Lymphocyte Count 3.15 k/cumm (1.2-3.4); Absolute Monocyte Count 0.47 k/cumm (0.11-0.7); Absolute Neutrophil Count 4.46 k/cumm (1.2-6.7); Basophils % 0.4; Eosinophils % 1.7; HCT 43.3 % (40.0-50.0); HGB 14.9 g/dL (13.5-17.5); Lymphocytes % 37.8; Mean Corp. HGB Concentration 34.4 g/dL (32.0-36.0); Mean Corpuscular Hemoglobin 30.5 pg (27.0-33.0); Mean Corpuscular Volume 88.7 fL (80-95); Mean Platelet Volume 9.7 fL (8.0-11.0); Monocytes % 5.6; Neutrophils % 53.5; Platelet Count 266 x1000/uL (130-400); RBC 4.88 m/cumm (4.50-6.00); White Blood Cell Count 8.33 k/cumm (4.4-10.8)
[2018-02-15 01:10] LABS: ALT 34 U/L (12-78); AST 17 U/L (15-37); Albumin 4.4 g/dL (3.4-5.0); Alkaline Phosphatase 68 U/L (46-116); BUN 14 mg/dL (7-18); Bilirubin, Total 0.2 mg/dL (0.2-1.0); Calcium 9.8 mg/dL (8.5-10.1); Chloride 102 mmol/L (98-107); Glucose 109 mg/dL (70-100); Lipase 197 U/L (73-393); Potassium 3.9 mmol/L (3.5-5.1); Sodium 139 mmol/L (136-145); Total Protein 8.1 g/dL (6.4-8.2)
[2018-02-15 01:18] LABS: Troponin I < 0.02 ng/mL (0.00-0.06)
[2018-02-15 01:20] LABS: Bilirubin Negative (Negative); Blood Negative (Negative); Clarity Clear; Glucose Negative (Negative); Ketones Trace mg/dL (Negative); Leukocyte Esterase Negative (Negative); Nitrite Negative (Negative); Urobilinogen 0.2 EU/dL (Up TO 0.2); pH 6.5 (5-8)
--- NOTE | 2018-02-15 01:58 | W.ED.GENAD ---
Discharge Plan Disposition Patient Disposition: HOME Condition: Stable Discharge Details Chief Complaint: Abd Prob Clinical Impression: Abdominal pain, RUQ Reason For Visit: FRANCHESCAEX Primary Care Provider: Brenda Hdz ED Provider: Glynn Clayton Home Meds and New Rx's Prescriptions: No Action sertraline [Zoloft] 100 MG tablet 100 mg PO .QO HS RF: 0 hydroxyzine HCl 50 MG tablet 50 mg PO HS RF: 0 divalproex [Depakote] 500 MG tablet,delayed release (DR/EC) 1,000 mg PO BID RF: 0 buspirone 10 MG tablet 20 mg PO BID RF: 0 gabapentin 100 mg Capsule 100 mg PO TID RF: 0 acetaminophen [Mapap Extra Strength] 500 MG tablet 500 mg PO PRN PRNRF: 0 ibuprofen 800 mg tablet 800 mg PO TID PRN (Reason: pain) Qty: 30 RF: 0 Discharge Instructions Instructions: Abdominal Pain (ED) Additional Instructions: Please continue taking Tylenol for your pain. Please avoid any spicy foods, fatty foods, greasy foods or diet. If you notice any worsening of your symptoms, or any new symptoms such as vomiting, diarrhea, fever, chills, shortness of breath, chest pain, numbness, weakness, or fainting , please return immediately to the emergency department for reevaluation. Please follow up with your primary care provider as soon as possible for reassessment and reevaluation. As always, it was a pleasure participating in your medical care today. Referrals: Brenda Hdz, WIRELESS ARCHITECT [Primary Care Provider] - Medical Decision Making This is a 37-year-old male who presents for evaluation of sudden onset right upper quadrant abdominal pain that started at 5 PM tonight. It is sharp in nature it does not appear to be radiating anywhere. He has had no associated vomiting or diarrhea. Aside for right upper quadrant pain with notable voluntary guarding the patient denies any other significant abnormalities and there are no other exam abnormalities. We will evaluate with a CT scan for any acute abdominal pathology including gallbladder pathology. We do not have ultrasound capabilities at this time of night. 3: [address] scan has returned, no acute abnormalities are noted. The patient's laboratory workup is totally benign. No significant abnormalities. No white count, no left shift, vital signs are normal and reassuring. Patient's pain is controlled with Tylenol. He does have some mild residual pain. May be secondary to musculoskeletal component, or a gallbladder spasm. We will recommend an appropriate diet from use, continue Tylenol, and close follow-up with his PCP. I have extensively reviewed the treatment plan and discharge instructions with the patient. I have addressed all patient concerns at this time. The patient was made aware of what symptoms to monitor for that would warrant a return to the emergency department. Discussed the plan with the patient, they demonstrate verbal understanding and agreement with our assessment and plan at this time. COMPARISON: No relevant prior studies available. FINDINGS: Lower thorax: No acute findings. ABDOMEN: Liver: Normal. No mass. Gallbladder and bile ducts: Normal. No calcified stones. No ductal dilation. Pancreas: Normal. No ductal dilation. Spleen: Normal. No splenomegaly. Adrenals: Normal. No mass. GABELAUREANO Preliminary Radiology Report BABY STROLLER RENTAL CLERK (QA) DISCREPANCY? If there is a discrepancy between the preliminary and final interpretation, please notify [employer] via [email or web address]. If you do not have access to our QA portal, call our QA team at [phone] CONFIDENTIALITY STATEMENT This report is intended only for the use of the referring physician, and only in accordance with law, If you received this in error, call [phone] Page 2 of 2 Kidneys and ureters: Normal. No hydronephrosis. Stomach and bowel: Normal. No obstruction. No mucosal thickening. Appendix: No evidence of appendicitis. PELVIS: Bladder: Unremarkable as visualized. Reproductive: Unremarkable as visualized. ABDOMEN and PELVIS: Intraperitoneal space: Normal. No free air. No significant fluid collection. Bones/joints: No acute fracture. No dislocation. Soft tissues: Unremarkable. Vasculature: Normal. No abdominal aortic aneurysm. Lymph nodes: Normal. No enlarged lymph nodes. IMPRESSION: No acute findings. Thank you for allowing us to participate in the care of your patient. EKG 00: 29 Rate 84, intervals normal, sinus rhythm, no significant ST elevations or depressions, no T wave inversions, Q waves noted in lead III, as well as a small Q wave in aVF. No evidence of STEMI no other significant abnormalities. HPI General Date/Time Provider Initiated Documentation: 02/15/18 00:09. HPI Narrative: This is a 37-year-old male with a past medical history of substance abuse, seizure disorder, depression, borderline personality disorder, and suicidality who presents today for evaluation of right upper quadrant pain. Patient states that at 5 PM which was roughly 7 hours ago he had sudden onset sharp right upper quadrant pain. He has not eaten or drunken anything because of this. He is not taking any medication for the pain. He denies any radiation of the pain to his back or other aspects of his abdomen. He denies any associated vomiting, diarrhea, numbness tingling or weakness. He denies any other complaints at this time. He denies any previous abdominal surgery. He denies any pertinent family history. He denies any current IV or illicit drug use . Related Data Home Medications Medication Instructions Recorded Confirmed buspirone 20 mg PO BID tab-cap NS 06/13/17 02/15/18 divalproex [Depakote] 1,000 mg PO BID tab-cap NS 06/13/17 02/15/18 hydroxyzine HCl 50 mg PO HS NS 06/13/17 02/15/18 sertraline [Zoloft] 100 mg PO .QO HS tab-cap NS 06/13/17 02/15/18 acetaminophen [Mapap Extra 500 mg PO PRN PRN 06/22/17 02/15/18 Strength] ibuprofen 800 mg PO TID PRN #30 tab 01/29/18 02/15/18 gabapentin 100 mg PO TID 01/31/18 02/15/18 Previous Rx's Medication Instructions Recorded ibuprofen 800 mg PO TID PRN #30 tab 01/29/18 Allergies Allergy/AdvReac Type Severity Reaction Status Date / Time buprenorphine HCl Allergy Leg Unverified 02/15/18 00:21 [From Suboxone] swelling naloxone HCl [From Suboxone] Allergy Unverified 02/15/18 00:21 ketorolac [From Toradol] AdvReac Mild Headache Unverified 02/15/18 00:21 General Stated Complaint: Abd Prob SEBASTIEN: 3 Review of Systems Review of Systems All systems reviewed & are unremarkable except as noted in HPI and below PFSH Social History household members: family housing: house lives independently: Yes Smoking/Tobacco Use Status: Current every day alcohol intake: never substance use type: does not use Exam Narrative Exam Narrative: 1.Const: Well-nourished, Well-developed, appearing stated age 2.Eyes: PERRL, no conjunctival injection, and symmetrical lids. 3.ENT: Atraumatic external nose and ears. Moist MM. Neck: Symmetric, trachea midline, No thyromegaly. 4.CVS: +S1/S2, No murmurs or gallops. Peripheral pulses 2+ and equal in all extremities. Brisk capillary refill in all extremities. 5.RESP: Unlabored respiratory effort. Clear to auscultation bilaterally. No wheezes rales or rhonchi 6.GI: Soft, notable right upper quadrant tenderness with voluntary guarding. 7.MSK: Normocephalic/Atraumatic, Extremities w/o deformity or ttp No cyanosis or clubbing, Normal movement of all extremities 8.Skin: Warm, Dry. No rashes or lesions. 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 Sensation grossly intact, no focal neurologic deficits. 10.Psych: (AAO) x3. Appropriate mood and affect Course Vital Signs Temperature 36.4 C L 02/15/18 00:09 Pulse 83 02/15/18 00:09 Respiratory Rate 16 02/15/18 00:09 Blood Pressure 129/87 02/15/18 00:09 Pulse Oximetry 97 02/15/18 00:09 Temperature 36.4 C L 02/15/18 00:09 Temperature Source Temporal Artery Scan 02/15/18 00:09 Pulse 83 02/15/18 00:09 Respiratory Rate 16 02/15/18 00:09 Respiratory Effort 02/15/18 00:09 Blood Pressure 129/87 02/15/18 00:09 Pulse Oximetry 97 02/15/18 00:09 Oxygen Delivery Method Room Air 02/15/18 00:09 Oxygen Flow Rate 0 02/15/18 00:09 Pain Level 10 02/15/18 00:17 Lab/Test Results Lab/Test Results: Laboratory Tests Range/Units 02/15/18 02/15/18 02/15/18 00:50 00:50 00:50 WBC (4.4-10.8) k/cumm 8.33 RBC (4.50-6.00) m/cumm 4.88 Hgb (13.5-17.5) g/dL 14.9 Hct (40.0-50.0) % 43.3 MCV (80-95) fL 88.7 MCH (27.0-33.0) pg 30.5 MCHC (32.0-36.0) g/dL 34.4 RDW (11.8-14.1) % 13.0 Plt Count (130-400) x1000/uL 266 MPV (8.0-11.0) fL 9.7 Immature Gran % 1.0 Neutrophils % 53.5 Lymphocytes % 37.8 Monocytes % 5.6 Eosinophils % 1.7 Basophils % 0.4 Absolute Neutrophils (1.2-6.7) k/cumm 4.46 Absolute Lymphocytes (1.2-3.4) k/cumm 3.15 Absolute Monocytes (0.11-0.7) k/cumm 0.47 Absolute Eosinophils (0.0-0.7) k/cumm 0.14 Absolute Basophils (0.0-0.2) k/cumm 0.03 Sodium (136-145) mmol/L 139 Potassium (3.5-5.1) mmol/L 3.9 Chloride (98-107) mmol/L 102 Carbon Dioxide (21.0-32.0) mmol/L 24.0 Anion Gap (3-11) mmol/L 13.0 H BUN (7-18) mg/dL 14 Creatinine (0.70-1.30) mg/dL 1.00 Estimated GFR/1.73 m2 (mL/min/1.73m2) >= 60.00 Glucose (70-100) mg/dL 109 H Calcium (8.5-10.1) mg/dL 9.8 Total Bilirubin (0.2-1.0) mg/dL 0.2 AST (15-37) U/L 17 ALT (12-78) U/L 34 Alkaline Phosphatase (46-116) U/L 68 Troponin I (0.00-0.06) ng/mL < 0.02 Total Protein (6.4-8.2) g/dL 8.1 Albumin (3.4-5.0) g/dL 4.4 Lipase (73-393) U/L 197 Urine Color (Yellow) Urine Clarity Urine pH (5-8) Ur Specific [place] (1.005-1.025) Urine Protein (Negative) mg/dL Urine Ketones (Negative) mg/dL Urine Blood (Negative) Urine Nitrite (Negative) Urine Bilirubin (Negative) Urine Urobilinogen (Up TO 0.2) EU/dL Ur Leukocyte Esterase (Negative) Urine Glucose (Negative) mg/dL Range/Units 02/15/18 01:15 WBC (4.4-10.8) k/cumm RBC (4.50-6.00) m/cumm Hgb (13.5-17.5) g/dL Hct (40.0-50.0) % MCV (80-95) fL MCH (27.0-33.0) pg MCHC (32.0-36.0) g/dL RDW (11.8-14.1) % Plt Count (130-400) x1000/uL MPV (8.0-11.0) fL Immature Gran % Neutrophils % Lymphocytes % Monocytes % Eosinophils % Basophils % Absolute Neutrophils (1.2-6.7) k/cumm Absolute Lymphocytes (1.2-3.4) k/cumm Absolute Monocytes (0.11-0.7) k/cumm Absolute Eosinophils (0.0-0.7) k/cumm Absolute Basophils (0.0-0.2) k/cumm Sodium (136-145) mmol/L Potassium (3.5-5.1) mmol/L Chloride (98-107) mmol/L Carbon Dioxide (21.0-32.0) mmol/L Anion Gap (3-11) mmol/L BUN (7-18) mg/dL Creatinine (0.70-1.30) mg/dL Estimated GFR/1.73 m2 (mL/min/1.73m2) Glucose (70-100) mg/dL Calcium (8.5-10.1) mg/dL Total Bilirubin (0.2-1.0) mg/dL AST (15-37) U/L ALT (12-78) U/L Alkaline Phosphatase (46-116) U/L Troponin I (0.00-0.06) ng/mL Total Protein (6.4-8.2) g/dL Albumin (3.4-5.0) g/dL Lipase (73-393) U/L Urine Color (Yellow) Yellow Urine Clarity Clear Urine pH (5-8) 6.5 Ur Specific [place] (1.005-1.025) 1.020 Urine Protein (Negative) mg/dL Negative Urine Ketones (Negative) mg/dL Trace H Urine Blood (Negative) Negative Urine Nitrite (Negative) Negative Urine Bilirubin (Negative) Negative Urine Urobilinogen (Up TO 0.2) EU/dL 0.2 Ur Leukocyte Esterase (Negative) Negative Urine Glucose (Negative) mg/dL Negative
--- NOTE | 2018-02-15 02:15 | DI.CT_ITS ---
SYMPTOMS/DIAGNOSIS: SHARP, SEVERE RIGHT UPPER QUADRANT PAIN CT SCAN OF THE ABDOMEN AND PELVIS: Routine examination was performed. No priors. The lung bases show no acute abnormalities. The liver is normal in size. No hepatic mass is seen. The portal and superior mesenteric veins are patent. The gallbladder is negative. No biliary ductal dilatation is present. The pancreas, spleen and adrenal glands are unremarkable. The kidneys show normal and symmetric enhancement. No evidence of a solid renal mass or obstruction. The urinary bladder is intact. The reproductive organs are unremarkable. The bowel shows no evidence of obstruction or inflammation. There is a normal appendix present. The abdominal aorta is of normal caliber. No significant abdominal or pelvic adenopathy, ascites or pneumoperitoneum is present. No acute abnormality is seen in the bones. IMPRESSION: No evidence of an acute abdomen.
[2018-02-15] MEDS: Acetaminophen 500 MG TAB 1000 MG PO (02:35)
[2018-02-15] MEDS: Dicyclomine 20 MG TAB PO (02:35)
[2018-02-15] MEDS: Omnipaque 350 MG/ML 100 ML BTL IJ (02:36)
--- NOTE | 2018-02-15 03:35 | DI.VRAD_ITS ---
EXAM: CT Abdomen and Pelvis With Contrast EXAM DATE/TIME: 02/15/2018 12:11 AM CLINICAL HISTORY: 37 years old, male; Pain; Abdominal pain; Localized; Right upper quadrant (ruq); Patient HX: Severe sharp ruq pain TECHNIQUE: Axial computed tomography images of the abdomen and pelvis with intravenous contrast. All CT scans at this facility use at least one of these dose optimization techniques: automated exposure control; mA and/or kV adjustment per patient size (includes targeted exams where dose is matched to clinical indication); or iterative reconstruction. Coronal and sagittal reformatted images were created and reviewed. CONTRAST: 100 ml of Omnipaque 350 administered intravenously. COMPARISON: No relevant prior studies available. FINDINGS: Lower thorax: No acute findings. ABDOMEN: Liver: Normal. No mass. Gallbladder and bile ducts: Normal. No calcified stones. No ductal dilation. Pancreas: Normal. No ductal dilation. Spleen: Normal. No splenomegaly. Adrenals: Normal. No mass. Kidneys and ureters: Normal. No hydronephrosis. Stomach and bowel: Normal. No obstruction. No mucosal thickening. Appendix: No evidence of appendicitis. PELVIS: Bladder: Unremarkable as visualized. Reproductive: Unremarkable as visualized. ABDOMEN and PELVIS: Intraperitoneal space: Normal. No free air. No significant fluid collection. Bones/joints: No acute fracture. No dislocation. Soft tissues: Unremarkable. Vasculature: Normal. No abdominal aortic aneurysm. Lymph nodes: Normal. No enlarged lymph nodes. IMPRESSION: No acute findings. Dictated and Authenticated by: James Benton MD. Ordering:JOHN Maki MD
[2018-02-15 03:56] VITALS: BP 100/50; PULSE 71; RESP 16; O2SAT 96
== END 2018-02-15 03:58 | disposition home or self-care (01) ==
PROVIDERS: Emergency Provider Student in an Organized Health Care Education/Training Program; PCP Nurse Practitioner Family
DX: R10.11 Right upper quadrant pain (principal); R94.31 Abnormal electrocardiogram [ECG] [EKG]; I10 Essential (primary) hypertension
CPT/HCPCS: 36415; 80053; 83690; 93005; 96374; 99285; 74177; 81003; 84484; 85025; 93010; J3490

== ENCOUNTER 2018-03-12 00:59 | Outpatient (CLI) | payer MEDICAID, SELFPAY ==
--- NOTE | 2018-03-12 13:30 | DI.RAD_ITS ---
SYMPTOMS/DIAGNOSIS: F/U LUNG NODULE, R91.8, F/U CXR 01/29/18 PA AND LATERAL CHEST: Comparison is made with [id number]. The cardiac and mediastinal contours have a normal appearance. The lungs are well inflated and clear. No pulmonary nodule is seen on today's exam. Previous chest x-ray commented on a left lower lobe nodule. The patient had a CT of the abdomen and pelvis 3Jan19 which included the lung bases. No nodules were seen on that exam. IMPRESSION: Negative chest x-ray.
== END 2018-03-12 01:19 ==
PROVIDERS: PCP Nurse Practitioner Family; Visit Provider Physician Assistant Medical
DX: R91.8 Other nonspecific abnormal finding of lung field (principal)
CPT/HCPCS: 71046

== ENCOUNTER 2018-06-15 14:27 | Outpatient (REF) | payer MEDICAID, SELFPAY ==
[2018-06-15 18:21] LABS: HCT 41.9 % (40.0-50.0); HGB 14.4 g/dL (13.5-17.5); Mean Corp. HGB Concentration 34.4 g/dL (32.0-36.0); Mean Corpuscular Hemoglobin 31.2 pg (27.0-33.0); Mean Corpuscular Volume 90.9 fL (80-95); Mean Platelet Volume 10.4 fL (8.0-11.0); Platelet Count 280 x1000/uL (130-400); RBC 4.61 m/cumm (4.50-6.00); White Blood Cell Count 5.98 k/cumm (4.4-10.8)
[2018-06-15 18:48] LABS: Mono Screening Negative (Negative)
[2018-06-15 19:02] LABS: ALT 24 U/L (12-78); AST 13 U/L (15-37); Albumin 4.1 g/dL (3.4-5.0); Alkaline Phosphatase 54 U/L (46-116); Amylase 56 U/L (25-115); Bilirubin, Direct 0.06 mg/dL (0.00-0.20); Bilirubin, Total 0.4 mg/dL (0.2-1.0); Lipase 234 U/L (73-393); Total Protein 7.1 g/dL (6.4-8.2)
== END 2018-06-15 14:47 ==
LOC: NCHCN 14:27
PROVIDERS: PCP Nurse Practitioner Family; Visit Provider Nurse Practitioner Family
DX: R10.11 Right upper quadrant pain (principal)
CPT/HCPCS: 80076; 83690; 85027; 82150; 86308

== ENCOUNTER 2020-11-06 17:15 | Inpatient (IN) | payer MEDICAID, SELFPAY ==
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
[2020-11-06 18:17] VITALS: BP 115/81; PULSE 96; RESP 16; TEMP 36.9; O2SAT 97
[2020-11-06] MEDS: Nicotine 4 MG GUM CH (18:39)
[2020-11-06 20:06] LABS: Abs Immature Grans 0.06 10^3/uL (0.0-0.06); Absolute Basophil Count 0.05 10^3/uL (0.0-0.2); Absolute Eosinophil Count 0.11 10^3/uL (0.0-0.7); Absolute Lymphocyte Count 1.82 10^3/uL (1.2-3.4); Absolute Monocyte Count 0.36 10^3/uL (0.1-0.8); Absolute Neutrophil Count 3.68 10^3/uL (1.2-6.7); Basophils % 0.8; Eosinophils % 1.8; HCT 40.9 % (40.0-50.0); HGB 13.8 g/dL (13.5-17.5); Lymphocytes % 29.9; MCH 30.3 pg (27.0-33.0); MCHC 33.7 % (32.0-36.0); MCV 89.7 fL (80-95); MPV 8.6 fL (8.0-11.0); Monocytes % 5.9; Neutrophils % 60.6; Nucleated RBC 0 %; Platelet Count 217 10^3/uL (130-400); RBC 4.56 10^6/uL (4.36-5.78); RDW 14.1 % (11.8-14.1); RDW-SD 45.4 fL; WBC 6.08 10^3/uL (4.4-10.8)
[2020-11-06 20:28] LABS: ALT 50 U/L (16-63); AST 42 U/L (15-37); Albumin 3.7 g/dL (3.4-5.0); Alkaline Phosphatase 121 U/L (46-116); Anion Gap 10.7 mmol/L (3-11); BUN 17 mg/dL (7-18); Bilirubin, Total 0.3 mg/dL (0.2-1.0); CO2 23.3 mmol/L (21.0-32.0); CREATININE 0.7 mg/dL (0.70-1.30); Calcium 9.3 mg/dL (8.5-10.1); Chloride 105 mmol/L (98-107); Glucose 103 mg/dL (74-106); Potassium 4.4 mmol/L (3.5-5.1); Sodium 139 mmol/L (136-145); TSH (W/Ref FT4) 1.48 uIU/mL (0.36-3.74); Total Protein 7.6 g/dL (6.4-8.2)
[2020-11-06] MEDS: LORazepam 1 MG TAB 2 MG PO (20:31)
[2020-11-06 20:40] LABS: VALPROIC ACID 28.5 ug/mL
[2020-11-06 20:40] LABS: Source Nasal/Nares
[2020-11-06 20:51] LABS: Acetaminophen 11 ug/mL (10-30); Salicylate < 2.8 mg/dL (<2.8)
[2020-11-06 20:54] LABS: ETHANOL BLOOD < 3.0 mg/dL (<3)
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
[2020-11-06 21:49] LABS: COVID-19 PCR Negative (Negative)
[2020-11-06 22:30] VITALS: BP 132/84; PULSE 88; RESP 18; TEMP 36.8; O2SAT 97
[2020-11-06 22:47] VITALS: BP 114/76; PULSE 73; RESP 12; TEMP 35.7; O2SAT 98
--- NOTE | 2020-11-06 22:49 | PDOC.MHCN ---
Date of service: 11/06/20 Time of Service: 17:00 Mental Health Crisis Note Presenting Issue How did you arrive at the ED and why did you come: The client was assessed at [facility] Carebed after disclosing to COTTAGE SUPERVISOR resident services supervisor Davonte Wong report of suicidal ideation with intent and plan. Per CB screening report, client stated he wanted to and Smash a cup and use the broken glass to cut myself up into a bloody mess. Precipitating Factors Client presents in casual attire with adequate grooming and is observed to be slumped forward, head-low, with glances upward to answer questions with slow movements. Eye contact is avoidant mixed with prolonged vacant staring. He is fully alert and oriented to time, person, place and situation with no reported deficits in memory. He appears dispositionally stable and appropriate and freely engages without issue throughout interaction. Speech is unpressured, coherent, low volume, flat tone. He reports feeling not safe with dysphoric / blunted affect. Thought process is circumstantial, loose associations, with delusional and grandiose content. Client reports experiencing auditory hallucinations, described as God talks to me. July 29 2019 God talked to me. I'm a prophet. No report of current visual hallucinatory perceptions. Perseverating thoughts on 'portals' between abilion and louise and Satan influencing people continue throughout interaction. He goes on to report feeling as though his medications are not correct and that his [facility] COTTAGE SUPERVISOR team and psychiatrist are out to get me. He states I've been dealing with portals since 27. They have me on too much. I'm depressed and miserable and no one gives a shit. He reports current SI, states I'm feeling mad and suicidal and not safe.; I have to be killed so God can come back for his children; I have to sacrifice myself for the world. He reports Could happen. Plenty of ways in terms of intent and admits to methods of harming himself involving finding razor blades for cutting, slashing off his finger, and smashing a glass cup over his head until I'm a bloody mess. He denies current HI, intent or plan. Disposition BEHAVIOR: Cooperative EYE CONTACT: Fleeting / fixed vacant staring MOOD: Dysphoric AFFECT: Dysphoric / blunted APPETITE: No reported issues. SLEEP(trouble falling/staying asleep: Dysregulated. Plan Consult occurred with [facility] Carebed manager lvn Viktoriya Robert and Emergency Services machine programmer Rogelio Salinas. Due to the client's apparent decompensation and adjustment issues, medication adherence concerns, and potential for impulsive self-harming / suicidal compulsivity, he will be diverted to [facility] on voluntary status and await transfer to in-patient setting where he can receive appropriate level of care. Once the client is stabilized re-admission to the [facility] may be indicated as part of post in-patient discharge plan. [facility] COTTAGE SUPERVISOR and/or ES on-call will be proceeding with referrals once labs are complete. [facility] updated. Signature Clinician's Name/Title: Fermin Dong [facility] ES clinician / HP
[2020-11-06 22:50] LABS: Bilirubin Negative (Negative); Blood Negative (Negative); Clarity Clear (Clear); Glucose Negative (Negative); Ketones Negative (Negative); Leukocyte Esterase Negative (Negative); Nitrite Negative (Negative); Specific Gravity 1.025 (1.005-1.025); Urobilinogen 0.2 EU/dL (Up TO 0.2); pH 5.5 (5-8)
[2020-11-06 23:15] LABS: *AMPHETAMINES SCREEN URINE Negative (Negative); *BARBITURATES SCREEN URINE Negative (Negative); *BENZODIAZEPINES SCREEN URINE Negative (Negative); Cannabinoids THC Negative (Negative); Cocaine Screen,Urine Negative (Negative); METHADONE URINE SCREEN Negative (Negative); OPIATES URINE SCREEN Negative (Negative)
[2020-11-06 23:16] LABS: Tricyclic Antidepressants Negative (Negative)
--- NOTE | 2020-11-07 00:32 | NUR.NOTE ---
Nursing Note: unable to preform [place] suicidal scale due to Pt not able to answer questions.
[2020-11-07 04:17] VITALS: BP 124/82; PULSE 76; RESP 12; TEMP 36.3; O2SAT 97
--- NOTE | 2020-11-07 04:32 | NUR.NOTE ---
Nursing Note: Discussion with Pt about plan of suicide Pt stated that he needed to kill myself for the people or risk being killed by the people so God could come and collect his children If I do it it will be a lot easier Pt told this nurse that I'm ok, and evertying is fine, I just need to tell the screener what they want to hear so I can get out of here. This nurse reinforced that attempt to keep him safe and Pt accepted I'm going to be here a while then. This nurse replied I guess so. Pt back in bed at this time.
--- NOTE | 2020-11-07 04:38 | NUR.NOTE ---
Nursing Note: Pt came out to door of room and asked this nurse what time it was. This nurse replied 4am and Pt then asked if he could have a sand which because I can't eat from 6am to 6pm, satan will use me as a punching bag. this nurse then asked Pt what he would like for a sand which pt given choices and then food delivered to Pt.
[2020-11-07] MEDS: Nicotine 4 MG GUM CH ×9 (05:12→23:36)
[2020-11-07] MEDS: clonazePAM 1 MG TAB PO ×3 (08:14→19:28)
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
--- NOTE | 2020-11-07 08:26 | CMSP_ITS ---
- If Service Date Differs Date of service: 11/07/20 Time of Service: 08:26 Care Management Safety Plan Status: Voluntary - Reason for Wait Reason for Wait: Inpatient Admission (await transfer to in-patient setting where he can receive appropriate level of care) VOLUNTARY FOR INPATIENT PSYCHIATRIC STABILIZATION. Patient is appropriate in all interactions since arriving at [facility]; Pt has demonstrated appropriate coping and communication skills, has articulated his or her needs and concerns and is fully engaged during staff interactions. Safety plan has been established with patient, and care team, to adhere to patient goals, identify restrictions based on behavioral status, address nutrition, and determine allowed personal belongings, tools for hygiene and personal care. Determine level of activity including ambulation, level of supervision, visitors, and determine privileges based on behaviors and level of engagement by pt. SAFETY PLAN: 1. Will remain on suicide precautions. In Paper Clothes 2. Will remain in room under direct supervision of one-on-one staff at all times provided by [employer]; GERALDO, MANAGER RETAIL SALES gang bore operator. 3. May have paper cups, plates, finger foods as well as a cardboard spoon with which to eat meals. 4. Follow [facility] Management of the Admitted Behavioral Health Patient policy. 5. Comfort bath system only. 6. No personal belongings 7. Visitors-No visitors at this time 8. Activities: soft cart items, TV ([employer] to hold remote), color book, crayons. 9. Bathroom privileges 10. Phone: None at this time 11. Due to VOLUNTARY status, if patient wishes to leave [facility], staff will contact [facility] Crisis Screener ([phone]) and On-Call Milk Of Lime Slaker ([phone]) as soon as possible. In the event of elopement, notify [facility] Police ([phone]). Patient is currently voluntarily at [facility] and seeking inpatient admission when a bed becomes available. [facility] Frontline Heating Repair Technician will continue seeking nomi cement. Please contact the Paste Maker [employer] Slaker ([phone]) and [facility] Heating Repair Technician ([phone]) for any needed changes in the Safety Plan. Safety plan has been provided to interdepartmental care team.
--- NOTE | 2020-11-07 08:26 | PDOC.CMSAFE ---
- If Service Date Differs Date of service: 11/07/20 Time of Service: 08:26 Care Management Safety Plan Status: Voluntary - Reason for Wait Reason for Wait: Inpatient Admission (await transfer to in-patient setting where he can receive appropriate level of care) VOLUNTARY FOR INPATIENT PSYCHIATRIC STABILIZATION. Patient is appropriate in all interactions since arriving at [facility]; Pt has demonstrated appropriate coping and communication skills, has articulated his or her needs and concerns and is fully engaged during staff interactions. Safety plan has been established with patient, and care team, to adhere to patient goals, identify restrictions based on behavioral status, address nutrition, and determine allowed personal belongings, tools for hygiene and personal care. Determine level of activity including ambulation, level of supervision, visitors, and determine privileges based on behaviors and level of engagement by pt. SAFETY PLAN: 1. Will remain on suicide precautions. In Paper Clothes 2. Will remain in room under direct supervision of one-on-one staff at all times provided by [employer]; GERALDO, CHIP TUNER laboratory animal facility supervisor. 3. May have paper cups, plates, finger foods as well as a cardboard spoon with which to eat meals. 4. Follow [facility] Management of the Admitted Behavioral Health Patient policy. 5. Comfort bath system only. 6. No personal belongings 7. Visitors-No visitors at this time 8. Activities: soft cart items, TV ([employer] to hold remote), color book, crayons. 9. Bathroom privileges 10. Phone: None at this time 11. Due to VOLUNTARY status, if patient wishes to leave [facility], staff will contact [facility] Crisis Screener ([phone]) and On-Call Materials Planning Manager ([phone]) as soon as possible. In the event of elopement, notify [facility] Police ([phone]). Patient is currently voluntarily at [facility] and seeking inpatient admission when a bed becomes available. [facility] Frontline Project Management Analyst will continue seeking placement. Please contact the Process Control Tech Materials Planning Manager ([phone]) and [facility] Project Management Analyst ([phone]) for any needed changes in the Safety Plan. Safety plan has been provided to interdepartmental care team.
[2020-11-07] MEDS: busPIRone 15 MG TAB PO ×3 (08:28→19:27)
[2020-11-07] MEDS: QUEtiapine 100 MG TAB 200 MG PO ×2 (10:05→15:23)
[2020-11-07] MEDS: Acetaminophen 500 MG TAB PO ×2 (12:08→23:35)
[2020-11-07] MEDS: diazePAM 5 MG TAB 10 MG PO (12:14)
[2020-11-07] MEDS: Docusate Sodium 100 MG CAP PO (12:37)
[2020-11-07] MEDS: Famotidine 20 MG TAB PO ×2 (12:38→19:27)
[2020-11-07] MEDS: Famotidine 20 MG TAB (12:40)
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
[2020-11-07 17:45] VITALS: BP 114/80; PULSE 98; RESP 18; TEMP 36; O2SAT 98
--- NOTE | 2020-11-07 19:21 | PDOC.MHCN ---
Date of service: 11/07/20 Time of Service: 11:28 Mental Health Crisis Note Presenting Issue How did you arrive at the ED and why did you come: Client was brought to the ED by Shelley Jackson,of the [facility]. He was experiencing suicidal ideation stating he wanted to and smash a cup anduse the broken glass to cut myself up into a bloody mess Precipitating Factors Client is a 40 yo male now in the psychiatric bed on the second floor of [facility]. Earlier this morning a RESEARCH CONSULTANT utilities service investigator had tried to assess him and he threw the tabllet at the Meat Specialist and refuse to speak to her because he states they are trying to kill me With this clinician He is calm and cooperative and willingly speaks and answers questions. His speech is clear and coherent and his affect if flat. He reports auditory and visual hallucinations an states that if two people are in the room one is god and one is the devil. He states at times he has seen the devil in people. I am in a portal between [facility] and [facility]. This is the worst it has ever been since I was 27 Disposition BEHAVIOR: Calm and cooperative EYE CONTACT: He looks directly at the screen during the zoom interview. MOOD: DEPRESSED AFFECT: FLAT APPETITE: He reports if he eats between 6 am and 6 pm the more he eats satan has more power over him. says he can only eat between 6pm and 6am SLEEP(trouble falling/staying asleep: sleeps okay when he takes his medication Plan he is waiting on a valuntary basis to be admitted to an inpatient facility to treat his suicidal ideation and help regulate his medication . All hospitals have been contacted and there are no available beds currently. Reassessment and contact with hospitals will be made daily. Signature Clinician's Name/Title: Rachel Smith, [facility], [facility] Emergency Services After Hours clinician
[2020-11-07] MEDS: LORazepam 1 MG TAB PO (21:01)
[2020-11-07] MEDS: diphenhydrAMINE 25 MG CAP PO (21:01)
[2020-11-07] MEDS: hydrOXYzine HCL 50 MG TAB PO (22:23)
[2020-11-07] MEDS: Amoxicillin 250 MG CAP PO (22:23)
[2020-11-08] MEDS: Nicotine 4 MG GUM CH ×9 (00:40→22:54)
[2020-11-08] MEDS: QUEtiapine 100 MG TAB 200 MG PO ×2 (08:42→12:54)
[2020-11-08] MEDS: Famotidine 20 MG TAB PO ×2 (08:43→19:21)
[2020-11-08] MEDS: busPIRone 15 MG TAB PO ×3 (08:43→19:21)
[2020-11-08] MEDS: clonazePAM 1 MG TAB PO ×3 (08:43→19:22)
[2020-11-08] MEDS: Amoxicillin 250 MG CAP PO ×2 (08:45→19:20)
[2020-11-08] MEDS: Divalproex Sodium 500 MG TAB.ER.24H 1000 MG PO (09:17)
--- NOTE | 2020-11-08 11:26 | W.PM.PROGNOT ---
Date of Service Date of service: 11/08/20 Time of Service: 11 Assessment and Plan Assessment and plan (1) Suicidal ideation: Start date: 11/08/20 Start time: 10:50 Status: Acute Assessment and plan: Patient having SI evaluated by MH found to be voluntary and admitted to transition unit for bed placement. He states between 6 am and pm he is calm on sundays. Diazepam 10 mg TID PRN for anxiety and behavior ordered, he knows when he starts to get ramped up therefore he can ask. He did throw his coffee this am, charge and myself spoke with him about losing privileges if behavior continues. He stated understanding. Explained to him we want to work with him and we are here to help but he has to work with us as well. he stated he hears voices in the [address] and that bothers him. he is willing to try ear plugs and ask charge to ask staff if any music being played have them use it quietly or not at all decrease stimuli as much as possible. (2) Hallucinations: Start date: 11/08/20 Start time: 10:50 Status: Acute Assessment and plan: Having hallucinations and delusions in the believes david and pavel are fighting between him discussed with Dr. Griffin Subjective Subjective Patient reports: other Interval history since last seen: Patient states today his is good day from 6 am to pm, as this is the day of Rest. He can tell when he becomes anxious and gets wound up. He states that the devil is in his stomach on the left side and the hannah on the right he is split down the middle. He states Monday through Mon are his worse days. Valium 10 mg prn TID ordered for anxiety. Spoke with him about behavior and how he needs to not throw objects. If he does he will loose everything in his room. he acknowledged this. At this time awaiting bed placement Exam Const General: cooperative, comfortable and no acute distress Nutritional Appearance: obese Orientation: alert, awake and oriented x3 Eyes Eyelids: eyelids normal Pupils: PERRL EOM: EOM intact bilaterally Neck Neck: normal visual inspection and no JVD Lymphatic: no lymphadenopathy noted Resp Effort & Inspection: normal respiratory effort Auscultation: clear to auscultation bilaterally Cardio Jugular venous pressure: no JVD Rhythm: regular rhythm Heart Sounds: S1 normal GI Auscultation: normal bowel sounds General: No CVA tenderness and deferred Skin General skin exam: no rashes or lesions noted Neuro General: patient alert, patient awake and patient oriented x3 Cognition: abnormal cognition Speech: speech normal Gait: normal gait Extrem General: normal to inspection, full ROM and no clubbing, cyanosis or edema Psych Appearance: grossly abnormal Affect: No normal affect Thought Process: abnormal Thought Content: delusions Insight: poor Judgment: poor Objective Last Vital Signs Temp 36.0 C L 11/07/20 17:45 Pulse 98 H 11/07/20 17:45 Resp 18 11/07/20 17:45 BP 114/80 11/07/20 17:45 Pulse Ox 98 11/07/20 17:45
--- NOTE | 2020-11-08 11:27 | PDOC.CMSAFE ---
- If Service Date Differs Date of service: 11/08/20 Time of Service: 11:27 Care Management Safety Plan Status: Voluntary - Reason for Wait Reason for Wait: Inpatient Admission Juno is a 40 yo male who came to [facility] from the Crisis Bed where he was staying after stating he wanted to , and smash a cup and use the broken glass to cut myself up into a bloody mess. Juno reports auditory and visual hallucinations an states that if two people are in the room one is god and one is the devil. He states at times he has seen the devil in people. I am in a portal between david and pavel. Also of note, Juno refuses to speak with [facility] reporting that they tried to kill him, however Juno is agreeable to communicate with [facility]. VOLUNTARY FOR INPATIENT PSYCHIATRIC STABILIZATION. Patient is appropriate in all interactions since arriving at [facility]; Pt has demonstrated appropriate coping and communication skills, has articulated his or her needs and concerns and is fully engaged during staff interactions. Safety plan has been established with patient, and care team, to adhere to patient goals, identify restrictions based on behavioral status, address nutrition, and determine allowed personal belongings, tools for hygiene and personal care. Determine level of activity including ambulation, level of supervision, visitors, and determine privileges based on behaviors and level of engagement by pt. SAFETY PLAN: 1. Will remain on suicide precautions. In Paper Clothes 2. Will remain in room under direct supervision of one-on-one staff at all times provided by CPSO; GERALDO, ONCOLOGY NURSE audiology director. 3. May have paper cups, plates, finger foods as well as a cardboard spoon with which to eat meals. 4. Follow [facility] Management of the Admitted Behavioral Health Patient policy. 5. Comfort bath system only. 6. No personal belongings 7. Visitors-No visitors at this time 8. Activities: soft cart items, TV ([employer] to hold remote), color book, crayons. 9. Bathroom privileges 10. Phone: None at this time 11. Due to VOLUNTARY status, if patient wishes to leave [facility], staff will contact [facility] Crisis Screener ([phone]) and On-Call Trim Crew Supervisor ([phone]) as soon as possible. In the event of elopement, notify [facility] Police ([phone]). Patient is currently voluntarily at [facility] and seeking inpatient admission when a bed becomes available. [facility] Frontline Electrician Front will continue seeking placement. Please contact the Hand Compositor Trim Crew Supervisor ([phone]) and [facility] Electrician Front ([phone]) for any needed changes in the Safety Plan. Safety plan has been provided to interdepartmental care team.
--- NOTE | 2020-11-08 11:37 | CMPROGNOTE_ITS ---
- If Service Date Differs Date of service: 11/08/20 Time of Service: 11:37 Care Management Progress Note S/O: Juno met with Rachel from [facility] and was able to remain calm. He shares that the head nurse was in to speak to him earlier after he threw his coffee and laid down the law. Juno shared that he is hoping someone can help him with his mental psychosis and will continue to wait for placement because he just wants to be normal like everyone else. Juno shares that his normal day out of the week is Monday, because he can eat and do what he wants. He is not looking forward to Monday at 6am because that is the time that Satin is able to start attacking his mind. He believes the more he eats from 6am to 6pm, the more he thinks. The more he thinks, the more Satin can use his thoughts against him and the more he will act like an animal. A: Juno is a 40 year old male admitted to [facility] on 11/06/20 for Delusional Mental Health, SI P: Juno will remain at [facility] on voluntary status and await transfer to in- patient setting where he can receive appropriate level of care. [facility] sent referrals to [facility] and [facility] yesterday, CM resent today at Rachel's request. CM continues to support discharge planning needs. - Status Status: Voluntary - Reason for Wait Reason for Wait: Inpatient Admission
[2020-11-08] MEDS: diazePAM 5 MG TAB 10 MG PO ×2 (13:02→19:21)
[2020-11-08] MEDS: Acetaminophen 500 MG TAB 1000 MG PO ×2 (13:58→19:20)
[2020-11-08] MEDS: LORazepam 1 MG TAB PO ×2 (16:05→19:48)
[2020-11-08] MEDS: Docusate Sodium 100 MG CAP PO (19:22)
--- NOTE | 2020-11-08 20:52 | PDOC.MHCN_ITS ---
Date of service: 11/08/20 Time of Service: 11:55 Mental Health Crisis Note Presenting Issue How did you arrive at the ED and why did you come: Patient was brought to the Ed by [facility] Care child welfare manager to be evaluated he was decompensating , hearing voices and was having Suicidal Ideation. Precipitating Factors He is experiencing audio ad visual hallucinations. Today he said he wanted to kill someone However he is remorseful for makimg that statement and said the day started out wrong He said someone tampered with his coffee. He is doing good at the moment and trying to better. He is still having suicidal ideation. Disposition BEHAVIOR: cooperative EYE CONTACT: makes good eye contact on the zoom screen MOOD: depressed AFFECT: sad APPETITE: says he can't eat between 6 am and 6pm it gives the devil more power to control him Plan Information is being sent to [facility], [facility] and [facility] for admission . There are no beds currently available. IRONING MACHINE OPERATOR clinician in [place] will be following up with hospitals. Signature Clinician's Name/Title: ARIANE NatarajanTalia, [facility] Emergency SErvices Clinician
[2020-11-08] MEDS: hydrOXYzine HCL 50 MG TAB PO (20:58)
[2020-11-08] MEDS: diphenhydrAMINE 25 MG CAP 50 MG PO (21:02)
[2020-11-09] MEDS: diazePAM 5 MG TAB 10 MG PO ×2 (02:59→10:09)
[2020-11-09] MEDS: Nicotine 4 MG GUM CH ×9 (03:55→23:39)
[2020-11-09] MEDS: clonazePAM 1 MG TAB PO ×3 (08:20→19:29)
--- NOTE | 2020-11-09 09:32 | CMPROGNOTE_ITS ---
- If Service Date Differs Date of service: 11/09/20 Time of Service: 09:32 Care Management Progress Note S/O: Juno was lying in bed when CM met with him. He was agreeable to speaking with Mellisa from [facility] again today. He shared with the screener that it was frustrating for him to tell his same story over and over. He shares that he is emotionally and mentally disturbed right now and need to get into a place soon so I can't kill himself. A: Juno is a 40 year old male admitted to [facility] on 11/06/20 for Delusional Mental Health, SI P: Juno will remain at [facility] on voluntary status and await transfer to in- patient setting where he can receive appropriate level of care. [facility] sent referrals to [facility] and [facility] yesterday. CM faxed referrals to [facility] and [facility] again today. CM continues to support discharge planning needs. - MH Services (Omit if N/A) Current MH Services: [facility] (Came to [facility] from the Carebed) - Status Status: Voluntary - Reason for Wait Reason for Wait: Inpatient Admission (Referrals have been sent to [facility], [facility] and [place])
--- NOTE | 2020-11-09 09:32 | PDOC.CMPRO ---
- If Service Date Differs Date of service: 11/09/20 Time of Service: 09:32 Care Management Progress Note S/O: Juno was lying in bed when CM met with him. He was agreeable to speaking with Mellisa from [facility] again today. He shared with the screener that it was frustrating for him to tell his same story over and over. He shares that he is emotionally and mentally disturbed right now and need to get into a place soon so I can't kill himself. A: Juno is a 40 year old male admitted to [facility] on 11/06/20 for Delusional Mental Health, SI P: Juno will remain at [facility] on voluntary status and await transfer to in-patient setting where he can receive appropriate level of care. [facility] sent referrals to [facility] and [facility] yesterday. CM faxed referrals to [facility] and [facility] again today. CM continues to support discharge planning needs. - MH Services (Omit if N/A) Current MH Services: [facility] (Came to [facility] from the Carebed) - Status Status: Voluntary - Reason for Wait Reason for Wait: Inpatient Admission (Referrals have been sent to [facility], [facility] and [facility])
[2020-11-09] MEDS: Divalproex Sodium 500 MG TAB.ER.24H 1000 MG PO (10:08)
[2020-11-09] MEDS: LORazepam 1 MG TAB PO ×4 (10:09→22:49)
[2020-11-09] MEDS: Amoxicillin 250 MG CAP PO (10:09)
[2020-11-09] MEDS: Famotidine 20 MG TAB PO (10:09)
[2020-11-09] MEDS: busPIRone 15 MG TAB PO ×2 (10:09→14:01)
[2020-11-09] MEDS: QUEtiapine 100 MG TAB 200 MG PO ×2 (10:09→14:01)
--- NOTE | 2020-11-09 10:26 | NUR.NOTE ---
Nursing Note: At 0845 on 11/09/20, this RN was standing in the pt.'s doorway, conversing with the pt., asking a few head to toe assessment questions, and administering the pt. their medications. Pt. stated, I'm only going to take the good one, and proceeded to remove the citalopram (Klonopin) 1 mg tab and take that. Pt. then handed the cup with the rest of the medications back to the RN. RN asked the pt. to please take the rest of the medications, informing the pt. that the MD had ordered them, and that they would help the pt. to feel less anxious and more settled. Pt. stated, Well, it's already been a terrible morning, and it's probably going to be a terrible day. RN again encouraged the pt. to please take the rest of the medications, informing the pt. that the MD had ordered them, and that they would help the pt. to feel less anxious and more settled, and that they would help the pt. to have a better day moving forwards. Pt. then agreed to take the medications, took the cup from the RN, and then stated, But I don't have anything to take these with. I drank everything with breakfast. RN asked the CPSO to obtain a cup of water for the pt., which the CPSO did. At 0850 on 11/09/20, the CPSO handed the pt. the cup of water, which had a few ice chunks that were melting floating in it. Pt. stated, What the hell are these floaties in the water? RN informed pt. that it appeared to be a few ice chunks that were melting. Pt. stated, Nope. I'm not taking these god damn meds anymore. You guys must have tainted the water. Pt. then proceeded to throw all of their medications up in to the air and on to the floor, handed the empty med cup and the cup of water to the RN, and then stormed over the stretcher and pulled the covers up over their head. RN collected all the medications from the floor and proceeded back to the nurses' station. RN informed the charge nurse of the pt.'s behavior and then wasted the medications. RN will reassess as necessary. At approximately 1000 on 11/09/20, following a conversation with the charge nurse, the pt. agreed to take their medications. At 1009 on 11/09/20, after obtaining the medications from the [facility], this RN provided the pt. with an unopened water bottle, which the pt. opened in front of the RN, pt. handed the RN the cap to the water bottle, and the RN then administered the medications to the pt. Pt. also apologized to the RN at this time, stating, I'm sorry for my behavior. I didn't mean to snap at you. I know that wasn't ok. It's just that I had just been woken up, and then breakfast came, and then you came, and I just couldn't take it. RN replied, Thank you for your apology. I appreciate it. I know it must be difficult when it feels like there is so much going on. Pt. again stated, It's just the way I was raised and I didn't mean to act that way. RN replied, Thank you for your apology. It's still not appropriate behavior, but I'm sure it must be difficult when that's the way you learned to handle things growing up. Pt. stated, Yeah, it is. RN then proceeded to ask the pt. a few suicide risk assessment questions (see Behavioral Health Assessment flowsheet for more information), which the pt. willingly answered. RN then informed the pt. that they would be back to check on them later and then proceeded to leave the pt.'s doorway. RN will reassess as necessary.
[2020-11-09] MEDS: Acetaminophen 500 MG TAB 1000 MG PO ×2 (11:31→19:29)
[2020-11-09 11:55] VITALS: BP 144/86; PULSE 83; RESP 18; TEMP 36.9; O2SAT 95
--- NOTE | 2020-11-09 13:30 | W.PM.PROGNOT ---
Date of Service Date of service: 11/09/20 Time of Service: 13:30 Assessment and Plan Assessment and plan (1) Suicidal ideation: Start date: 11/09/20 Start time: 13:33 Status: Acute Assessment and plan: Continues to perseverate on Hevean and hell evil and good. Requesting valium be scheduled. Will not however will make q 4 prn CM working on bed placement (2) Hallucinations: Start date: 11/09/20 Start time: 13:35 Status: Acute Assessment and plan: Having hallucinations and delusions in the believes heaven and hell are fighting between him discussed with Dr. Griffin Subjective Subjective Patient reports: other Interval history since last seen: Woke up this morning and threw coffee and medications, he knew enough to put ear plugs in and ask for coping skills which helped him. He is asking for scheduled valium, will not schedule however will make q 4 hour prn 5 mg. continues to talk about the devil and hevean and hell perseverating on it. CM working on placement MH involved. Exam Const General: cooperative, comfortable and no acute distress Nutritional Appearance: obese Orientation: alert, awake and oriented x3 Eyes Eyelids: eyelids normal Pupils: PERRL EOM: EOM intact bilaterally Neck Neck: normal visual inspection and no JVD Lymphatic: no lymphadenopathy noted Resp Effort & Inspection: normal respiratory effort Auscultation: clear to auscultation bilaterally Cardio Jugular venous pressure: no JVD Rhythm: regular rhythm Heart Sounds: S1 normal GI Auscultation: normal bowel sounds General: No CVA tenderness and deferred Skin General skin exam: no rashes or lesions noted Neuro General: patient alert, patient awake and patient oriented x3 Cognition: abnormal cognition Speech: speech normal Gait: normal gait Extrem General: normal to inspection, full ROM and no clubbing, cyanosis or edema Psych Appearance: grossly abnormal Affect: No normal affect Thought Process: abnormal Thought Content: delusions Insight: poor Judgment: poor Objective Last Vital Signs Temp 36.9 C 11/09/20 11:55 Pulse 83 11/09/20 11:55 Resp 18 11/09/20 11:55 BP 144/86 H 11/09/20 11:55 Pulse Ox 95 11/09/20 11:55
--- NOTE | 2020-11-09 15:32 | PHACLINREV_ITS ---
Pharmacy Admission Review - Admission Clinical Review (Last Reviewed 11/06/20 @ 23:22 by Peggy Dotson NP) Suicidal ideation (Acute) Hallucinations (Acute) buprenorphine HCl [From Suboxone] Allergy (Unverified 11/06/20 18:23) Leg swelling naloxone HCl [From Suboxone] Allergy (Unverified 11/06/20 18:23) ketorolac [From Toradol] Adverse Reaction (Mild, Unverified 11/06/20 18:23) Headache Resuscitation Status Full Code Height 5 ft 8 in Weight 89.7 kg - Renal Dosing Renal Dosing: BUN 17 mg/dL (7-18) 11/06/20 19:30 Creatinine 0.7 mg/dL (0.70-1.30) 11/06/20 19:30 Medications needing adjustments: Reviewed (Crcl >120 mL/min current meds okay.) - Anticoagulation Anticoagulation: Hgb 13.8 g/dL (13.5-17.5) 11/06/20 19:30 Hct 40.9 % (40.0-50.0) 11/06/20 19:30 Plt Count 217 10^3/uL (130-400) 11/06/20 19:30 Creatinine 0.7 mg/dL (0.70-1.30) 11/06/20 19:30 DVT Prophylaxis: N/A - Opiate Usage Evaluate Pain Scale/Pains Meds: N/A - Relevant Labs Sodium 139 mmol/L (136-145) 11/06/20 19:30 Potassium 4.4 mmol/L (3.5-5.1) 11/06/20 19:30 Chloride 105 mmol/L (98-107) 11/06/20 19:30 Electrolytes, C-Reactive P, ESR: Reviewed - DM Control DM Control: Glucose 103 mg/dL (74-106) 11/06/20 19:30 Insulin Dosing: N/A - Heart Failure/NV EF%, ENDER's, B-Blockers, Diuretics: N/A - BP Control BP Control: Blood Pressure 144/86 If elevated: Reviewed (BP elevated today but has been within normal limits most of admission so far.) - Qtc Review If Elevated: N/A - IV to PO Switch IV Medications: Reviewed - Home Meds Home Med List reviewed: Reviewed (Multiple EPIC AMBULATORY ANALYST depressants) Relevent Home Meds Not ordered & why?: All home meds listed are currently ordered - Current meds Current Medication Order Review: Reviewed - Comments Comments/Follow Ups: Watch BP, labs and for med changes. Antibiotic Activity - Pharmacy Antibiotic Review Pharmacy Antibiotic Activity: Reviewed, no change (PO amoxicillin ordered)
--- NOTE | 2020-11-09 16:18 | PDOC.CMSAFE ---
- If Service Date Differs Date of service: 11/09/20 Time of Service: 16:19 Care Management Safety Plan Status: Voluntary - Reason for Wait Reason for Wait: Inpatient Admission Status: Voluntary - Reason for Wait Reason for Wait: Inpatient Admission Juno is a 40 yo male who came to [facility] from the Crisis Bed where he was staying after stating he wanted to , and smash a cup and use the broken glass to cut myself up into a bloody mess. Juno reports auditory and visual hallucinations and states that if two people are in the room at once, one is god and one is the devil. He states at times he has seen the devil in people. I am in a portal between Filtecchristie and pavel. Also of note, Juno refuses to speak with [facility] reporting that they tried to kill him, however Juno is agreeable to communicate with [facility]. VOLUNTARY FOR INPATIENT PSYCHIATRIC STABILIZATION. Patient is appropriate in all interactions since arriving at [facility]; Pt has demonstrated appropriate coping and communication skills, has articulated his or her needs and concerns and is fully engaged during staff interactions. Safety plan has been established with patient, and care team, to adhere to patient goals, identify restrictions based on behavioral status, address nutrition, and determine allowed personal belongings, tools for hygiene and personal care. Determine level of activity including ambulation, level of supervision, visitors, and determine privileges based on behaviors and level of engagement by pt. SAFETY PLAN: 1. Will remain on suicide precautions. In Paper Clothes 2. Will remain in room under direct supervision of one-on-one staff at all times provided by CPSO; GERALDO, FLOCCULATOR OPERATOR chenille machine operator. 3. May have paper cups, plates, finger foods as well as a cardboard spoon with which to eat meals. 4. Follow [facility] Management of the Admitted Behavioral Health Patient policy. 5. Comfort bath system only. 6. No personal belongings 7. Visitors-No visitors at this time 8. Activities: soft cart items, TV ([facility] to [facility] remote), color book, crayons. 9. Bathroom privileges 10. Phone: None at this time 11. Due to VOLUNTARY status, if patient wishes to leave [facility], staff will contact [facility] Crisis Screener ([phone]) and On-Call Pick Pulling Machine Operator ([phone]) as soon as possible. In the event of elopement, notify [facility] Police ([phone]). Patient is currently voluntarily at [facility] and seeking inpatient admission when a bed becomes available. [facility] Frontline Windows Software Engineer will continue seeking placement. Please contact the Sales Recruitment Specialist Pick Pulling Machine Operator ([phone]) and [facility] Windows Software Engineer ([phone]) for any needed changes in the Safety Plan. Safety plan has been provided to interdepartmental care team.
[2020-11-09] MEDS: diazePAM 5 MG TAB PO ×2 (18:31→22:49)
[2020-11-10] MEDS: Nicotine 4 MG GUM CH ×3 (02:11→09:25)
[2020-11-10] MEDS: diazePAM 5 MG TAB PO ×3 (04:29→13:05)
[2020-11-10] MEDS: LORazepam 1 MG TAB PO ×3 (04:30→13:05)
[2020-11-10] MEDS: Famotidine 20 MG TAB PO (04:35)
[2020-11-10] MEDS: clonazePAM 1 MG TAB PO (08:07)
[2020-11-10] MEDS: Amoxicillin 250 MG CAP PO (08:07)
[2020-11-10 08:10] VITALS: BP 115/60; PULSE 82; RESP 18; TEMP 36.3; O2SAT 98
[2020-11-10] MEDS: Acetaminophen 500 MG TAB 1000 MG PO (08:17)
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
--- NOTE | 2020-11-10 10:27 | NUR.NOTE ---
Nursing Note: At 1015 on 11/10/20, this RN received a call from EMELINA Zuniga at [facility], asking for a nurse to nurse report on the pt. RN updated EMELINA Zuniga regarding pt.'s admitting diagnosis, admitting date, mentation, VS, pain level, head to toe assessment, suicide risk assessment, the pt.'s delusions/hallucinations, the pt.'s medications, etc. EMELINA Zuniga verbalized understanding and presented with a few questions that were answered. RN will reassess as necessary.
[2020-11-10] MEDS: diazePAM 5 MG TAB 10 MG PO (11:00)
--- NOTE | 2020-11-10 11:16 | NUR.NOTE ---
Nursing Note: At 1055 on 11/10/20, a Penelope Gaitan was called on the pt. by the pt.'s CPSO. Primary RN, as well as, multiple other hotel staff member's and a staff MORTAR MIXER OPERATOR, immediately arrived in the transition area. Upon arrival, pt. was noted to be standing in the doorway to their room, throwing stuff (blankets/pillows/foam door from bathroom/etc.) in to the hallway, and yelling. Pt. then attempted to step in to the hallway and approach staff members and the doors, before stopping a few steps outside of the doorway to their room. Primary RN began to converse with the pt. to attempt to de-escalate the pt. and determine what the aggravating factor(s) leading to their agitation/aggression was. Pt. stated, I just can't take the noise anymore. I feel like I'm not in control of my body. Between the delusions and hallucinations and the noise, I just can't do it anymore. One of the hotel staff member's immediately left the transition area and asked the maintenance staff (who have been performing construction right near the pt.'s room all morning) to stop immediately, so as not to further upset the pt. Once maintenance staff had stopped their construction, the pt. removed the earplugs they had in their ears. Primary RN continued to converse with the pt., attempting to further de-escalate the pt. Pt. stated, Between everything going on with God and Satan, and heaven and hell, I feel so anxious. I can't do it anymore. (Pt. now looking at ceiling and flipping off the ceiling...) Fuck you! Fuck you! Pt. then continued by stating, I just want to . Please just let me go so I can . You know what I wish? I wish that you would all just beat on me until I bleed. I want to bleed. I want to feel the pain. Primary RN stated, We're not going to do that. We are all here to keep you safe. We care about your safety. Primary RN then asked pt. Would you be willing to take a medication orally to help with your agitation and anxiety if I offered it to you? Pt. agreed to take a medication orally, which was communicated to the charge nurse, which was communicated to the NURSE STAFF INDUSTRIAL, and a now order for 10 mg of PO diazepam (Valium) was placed. Charge nurse removed the medication from the Pyxis, gave it to the primary RN, who then administered it to the pt. Pt. willingly took the medication and then turned to face the window, crying and stating, Why me? Why does this have to happen to me? Primary RN encouraged pt. to take a few deep breaths and allow the medication time to start working. Primary RN then asked the pt. if they would like to return to their room to sit and rest. Pt. stated, I would prefer to offline editor the hallway for a few minutes. I don't want to go back in my room yet. By this time, pt. had taken a few deep breaths, had stopped crying, and appeared to be calming down. Primary RN informed the pt. that if they continued to calm down and behave appropriately that the primary RN and other staff members (excluding the CPSO who would remain with the pt.), would leave the transition area and give the pt. some space. Pt. agreed, stuff from the hallway was picked up, primary RN informed the pt. that they would be back to check on the pt. shortly, and then primary RN, as well as, other staff members left the transition area. RN will reassess as necessary.
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
--- NOTE | 2020-11-10 12:52 | CMDISCH_ITS ---
- If Service Date Differs Date of service: 11/10/20 Time of Service: 12:52 LACE Index Scoring Tool - Questions: Length of Stay (in days): 4 - 6 Acuity (Admit via E.D.?): Yes E.D. Visits: 1 - Answers: Total Score: 8 Risk of Readmission: Low Risk Care Management Discharge Reason for Hospitalization: Delusional MH, SI Discharge Plan: Juno will transfer to [facility] for psychiatric stabilization. He will transport via [facility], coordinated by this development writer. CM notified BR of anticipated arrival time. Patient/Family Education Needs: Review discharge instructions, discuss Ask Me Three. Services Needed at Discharge: Psychiatric Facility, Transportation ([facility]) - MH Services (Omit if N/A) Current MH Services: AIRCRAFT DESIGN ENGINEER - Disposition Disposition: [place] Transport via of: EMS ([facility])
== END 2020-11-10 13:10 | disposition short-term general hospital (02) | DRG 880 ==
LOC: ER 21:30 → MS 22:40
PROVIDERS: Admitting Provider Family Medicine; Emergency Provider Physician Assistant; PCP Nurse Practitioner Family; Visit Provider Family Medicine
DX: R45.851 Suicidal ideations (principal); R44.0 Auditory hallucinations; R44.1 Visual hallucinations; Z91.14 Patient's other noncompliance with medication regimen; Z20.822 Contact with and (suspected) exposure to COVID-19; F60.3 Borderline personality disorder; F22 Delusional disorders; F41.9 Anxiety disorder, unspecified; F32.9 Major depressive disorder, single episode, unspecified; K59.09 Other constipation; K21.9 Gastro-esophageal reflux disease without esophagitis; G40.909 Epilepsy, unspecified, not intractable, without status epilepticus; Z91.410 Personal history of adult physical and sexual abuse; F10.11 Alcohol abuse, in remission; F17.210 Nicotine dependence, cigarettes, uncomplicated; F19.10 Other psychoactive substance abuse, uncomplicated; F21 Schizotypal disorder
CPT/HCPCS: 80053; 80307; 87635; 99285; 80164; 80320; 80329; 81003; 84443; 85025; 99219; 99225; 99231; 99232; 99238; G0378; J3490

== ENCOUNTER 2022-05-17 15:56 | Outpatient (REF) | payer MEDICAID, SELFPAY ==
[2022-05-17 18:35] LABS: Anion Gap 8.6 mmol/L (3-11); BUN 8 mg/dL (7-18); CO2 28.4 mmol/L (21.0-32.0); CREATININE 0.8 mg/dL (0.70-1.30); Calcium 9.7 mg/dL (8.5-10.1); Chloride 103 mmol/L (98-107); Estimated GFR 115.45 (mL/min/1.73m2); Glucose 139 mg/dL (74-106); Potassium 4.5 mmol/L (3.5-5.1); Sodium 140 mmol/L (136-145); Uric Acid 6.8 mg/dL (3.5-7.2)
== END 2022-05-17 15:57 | disposition home or self-care (01) ==
LOC: NCHCN 15:56
PROVIDERS: PCP Nurse Practitioner Family; Visit Provider Physician Assistant
DX: M25.562 Pain in left knee (principal); R79.89 Other specified abnormal findings of blood chemistry
CPT/HCPCS: 80048; 84550

== ENCOUNTER 2023-01-25 18:54 | Outpatient (REF) | payer MEDICAID, SELFPAY ==
[2023-01-25 21:05] LABS: Abs Immature Grans 0.02 10^3/uL (0.0-0.06); Absolute Basophil Count 0.03 10^3/uL (0.0-0.2); Absolute Eosinophil Count 0.09 10^3/uL (0.0-0.7); Absolute Lymphocyte Count 1.78 10^3/uL (1.2-3.4); Absolute Monocyte Count 0.28 10^3/uL (0.1-0.8); Absolute Neutrophil Count 3.75 10^3/uL (1.2-6.7); Basophils % 0.5; Eosinophils % 1.5; HCT 40.4 % (40.0-50.0); HGB 13.7 g/dL (13.5-17.5); Immature Grans % 0.3; Lymphocytes % 29.9; MCH 29.7 pg (27.0-33.0); MCHC 33.9 % (32.0-36.0); MCV 87 fL (80-95); MPV 9.6 fL (8.0-11.0); Monocytes % 4.7; Neutrophils % 63.1; Platelet Count 268 10^3/uL (130-400); RBC 4.62 10^6/uL (4.36-5.78); RDW 12.7 % (11.8-14.1); RDW-SD 40.1 fL; WBC 5.95 10^3/uL (4.4-10.8)
[2023-01-25 21:26] LABS: ALT 22 U/L (16-63); AST 19 U/L (15-37); Albumin 4.3 g/dL (3.4-5.0); Alkaline Phosphatase 66 U/L (46-116); Anion Gap 9.1 mmol/L (3-11); BUN 22 mg/dL (7-18); Bilirubin, Total 0.5 mg/dL (0.2-1.0); CO2 26.9 mmol/L (21.0-32.0); CREATININE 0.9 mg/dL (0.70-1.30); Calcium 9.7 mg/dL (8.5-10.1); Chloride 103 mmol/L (98-107); Estimated GFR 110.73 (mL/min/1.73m2); FREE T4 0.98 ng/dL (0.76-1.46); Glucose 90 mg/dL (74-106); Potassium 4.2 mmol/L (3.5-5.1); Sodium 139 mmol/L (136-145); TSH 0.94 uIU/mL (0.36-3.74); Total Protein 7.5 g/dL (6.4-8.2)
[2023-01-26 21:03] LABS: PSA, Diagnostic 0.4 ng/mL (<=2.5)
== END 2023-01-25 18:55 | disposition home or self-care (01) ==
LOC: NCHCN 18:54
PROVIDERS: PCP Nurse Practitioner Family; Visit Provider Physician Assistant
DX: F60.3 Borderline personality disorder (principal); R39.9 Unspecified symptoms and signs involving the genitourinary system
CPT/HCPCS: 80053; 84153; 84439; 84443; 85025